=== PATIENT | male | born 2000 | race African-American/Black ===

== ENCOUNTER 2023-03-14 15:05 | Inpatient (IN) | payer OTHER ==
[~2023-03-14 15:05] MED LIST: Iopamidol-370 76% 500 ML MDV (1 ML CHARGE) ONE
[2023-03-14] MEDS ORDERED: fentaNYL 50 mcg/mL 1 mL Vial ONE (15:17)
[2023-03-14] MEDS ORDERED: Fentanyl CADD 100 ML IV SCH (15:30)
[2023-03-14 15:32] LABS: #Eosinphils 0.1 thou/uL (0.0-0.7); #Monocytes 0.5 thou/uL (0.11-0.59); %Basophils 0.3 % (0.0-1.0); %Eosinophils 0.6 % (0.0-10.0); %Lymphocytes 12.2 % (21.0-51.0); %Monocytes 4.7 % (0.0-10.0); %Neutrophils 81.7 % (42.0-75.0); Hematocrit 38.2 % (42.0-52.0); Hemoglobin 13.6 g/dL (14.0-18.0); Mean Corpuscular HGB CONC 35.6 g/dL (32.0-36.0); Mean Corpuscular Hemoglobin 31.3 pg (27.0-31.0); Mean Corpuscular Volume 87.8 fl (78.0-98.0); Mean Platelet Volume 10.7 fL (7.4-10.4); Platelet Count 180 10x3/uL (130-400); RBC Distribution Width 11.8 % (11.5-14.5); Red Blood Cell (RBC) Count 4.35 mill/uL (4.70-6.10)
[2023-03-14] MEDS ORDERED: Boostrix 0.5 ML (Tdap) VIAL (>/=7 yrs of age) ONE (15:35)
[2023-03-14 15:40] LABS: Actual Bicarbonate (HCO3v) 23.7 mEq/L (22-28); Analyzer IN Cardio ER; Base Excess -1.1 mEq/L (-2.0 to +3.0); Calcium, Ionized (venous) 1.09 mmol/L (1.16-1.32); Chloride (VBG) 106 mmol/L (98-106); Hematocrit-VBG 42 % (42.0-52.0); Hemoglobin (Hb) 14.3 g/dL (13.2-17.3); Potassium (VBG) 2.96 mmol/L (3.70-5.30); Sodium 142 mmol/L (133-146)
[2023-03-14 15:42] LABS: INR-International Normal Ratio 1.2; Prothrombin Time 15.7 sec (12.0-14.7)
[2023-03-14 15:57] LABS: Actual Bicarbonate (HCO3a) 19.2 mEq/L (22-28); Analyzer IN Cardio ER; Base Excess (BEa) -3.1 mEq/L (-2.0 to +3.0); CO2 Tension 27.1 mmHg (35.0-45.0); Calcium, Ionized (arterial) 1.13 mmol/L (1.12-1.30); Hematocrit-ABG 39 % (42.0-52.0); Hemoglobin (Hb) 13.4 g/dL (14.0-18.0); O2 Tension (PaO2), arterial 297.3 mmHg (80.0-100.0); pH, Arterial 7.468 (7.35-7.45)
[2023-03-14 16:00] LABS: Puncture Site Left Radial
[2023-03-14 16:01] LABS: ALV-art Gradient 25.325 mmHg (0-20)
[2023-03-14] MEDS ORDERED: Ondansetron PF 4 MG/2 ML Vial IVP PRN (16:09)
[2023-03-14] MEDS ORDERED: Morphine 4 MG/ML VIAL SLOW IVP PRN (16:09)
[2023-03-14] MEDS ORDERED: TETANUS, DIPHTHERIA TOX,ADULT (TDVAX) 0.5 ML VIAL IM ONE (16:09)
[2023-03-14] MEDS ORDERED: Ipratropium/Albuterol 3 ML NEB NEB PRN (16:09)
[2023-03-14] MEDS ORDERED: D5 1/2 NS w/20 mEq KCL 1,000 ML IV SCH (16:15)
[2023-03-14] MEDS ORDERED: Ventilator Sedation Protocol 1 EACH FS SCH (16:15)
[2023-03-14] MEDS ORDERED: Propofol 1,000 MG/100 ML VIAL IV ONE (16:22)
[2023-03-14 16:27] LABS: Bacteria/HPF None Seen HPF (None Seen); Bilirubin Negative (Negative); Blood, Urine 1+ (Negative); CAUTI Indications for Culture Pelvic or flank pain; Clarity Clear (Clear); Glucose, Urine (Dipstick) Normal (Negative); Ketone, Urine Negative (Negative); Leukocyte Negative Leu/uL (Negative); Nitrite Negative (Negative); Protein, Urine (Dipstick) 20 mg/dL (Neg-Trace); RBC/HPF 21-50 HPF (0-3); Squamous Epithelial None Seen HPF (0-3); Urobilinogen Normal mg/dL (Less than 2); WBC/HPF 0-3 HPF (0-3); pH, Urine 6.5 (5.0-9.0)
[2023-03-14 16:30] LABS: ALT (SGPT) 20 U/L (8-55); AST (SGOT) 32 U/L (5-34); Albumin 4.1 g/dL (3.5-5.0); Alcohol Less than 10.0 mg/dL (Less than 10); Alkaline Phosphatase 51 U/L (40-110); Anion Gap 13 mmol/L (10-20); BUN (Urea Nitrogen) 16 mg/dL (8.9-20.6); Bilirubin, Total 1.2 mg/dL (0.2-1.2); Calc. Creatinine Clearance 0 mL/min (70-130); Calcium 8.5 mg/dL (7.8-10.44); Carbon Dioxide 18 mmol/L (22-29); Chloride 109 mmol/L (98-107); Estimated GFR 123; Globulin 2.2 g/dL (2.4-3.5); Glucose 118 mg/dL (70-105); Protein, Total 6.3 g/dL (6.0-8.3); Sodium 137 mmol/L (136-145)
[2023-03-14 16:34] LABS: Specific Gravity, Urine 1.045 (1.002-1.036)
[2023-03-14 16:36] LABS: Urine Culture Reflex No No
[2023-03-14] MEDS ORDERED: DISCONTINUE PREVIOUS NARCOTIC PAIN MEDICATIONS AND BENZODIAZEPINES FS SCH (17:00)
[2023-03-14] MEDS ORDERED: Propofol BOLUS 1,000 MG/100 ML VIAL IV PRN (17:00)
[2023-03-14] MEDS ORDERED: Fentanyl BOLUS 250 ML IVPB PRN (17:00)
[2023-03-14] MEDS ORDERED: Mannitol 12.5 GM/50 ML ONE ×2 (17:14→17:27)
[2023-03-14] MEDS ORDERED: Dextrose 5% in Water 1,000 ML IV PRN (17:23)
[2023-03-14] MEDS ORDERED: Glucagon 1 MG/ML KIT IM PRN (17:23)
[2023-03-14] MEDS ORDERED: Dextrose 50% Abboject 50 ML SYRINGE SLOW IVP PRN (17:23)
[2023-03-14] MEDS ORDERED: manNITOL 20% 0 ML ONE (17:27)
[2023-03-14] MEDS ORDERED: Electrolyte Replacement Protocol 1 EACH FS SCH (17:35)
[2023-03-14] MEDS: Morphine 2 MG/ML VIAL SLOW IVP PRN (18:44)
[2023-03-14] MEDS: Lorazepam 2 MG/ML VIAL SLOW IVP PRN (18:44)
[2023-03-14] MEDS: Potassium Chloride 20 MEQ in Premix 1 BAG IVPB SCH ×2 (18:46→20:56)
[2023-03-14] MEDS: D5 0.9% NS w/ 20 mEq KCl 1,000 ML IV SCH (18:46)
[2023-03-14] MEDS ORDERED: Pantoprazole 40 MG VIAL IVP SCH (21:00)
[2023-03-14] MEDS: Propofol 1,000 MG/100 ML VIAL IV PRN (22:55)
[2023-03-15] MEDS: Acetaminophen 325 MG TAB PO PRN (01:42)
[2023-03-15 02:33] LABS: Anion Gap 12 mmol/L (10-20); BUN (Urea Nitrogen) 14 mg/dL (8.9-20.6); Calc. Creatinine Clearance 112 mL/min (70-130); Calcium 8.1 mg/dL (7.8-10.44); Carbon Dioxide 18 mmol/L (22-29); Chloride 112 mmol/L (98-107); Estimated GFR 119; Glucose 96 mg/dL (70-105); Magnesium 1.7 mg/dL (1.6-2.6); Sodium 138 mmol/L (136-145)
[2023-03-15] MEDS: Lorazepam 2 MG/ML VIAL SLOW IVP PRN ×2 (02:37→04:24)
[2023-03-15] MEDS: D5 0.9% NS w/ 20 mEq KCl 1,000 ML IV SCH ×2 (02:44→12:05)
[2023-03-15] MEDS: CEFAZOLIN 2 GM in Sodium Chloride 0.9% 100 ML IVPB SCH ×3 (03:40→16:32)
[2023-03-15] MEDS ORDERED: Magnesium 2 GM/50 ML(in water) 2 GM in Premix 1 BAG IVPB SCH (04:15)
[2023-03-15] MEDS: Fentanyl CADD 100 ML IV SCH (04:24)
[2023-03-15] MEDS: Propofol 1,000 MG/100 ML VIAL IV PRN ×2 (05:29→16:33)
[2023-03-15] MEDS ORDERED: CEFAZOLIN 2 GM in Sodium Chloride 0.9% 100 ML IVPB SCH (06:00)
[2023-03-15 07:57] LABS: Actual Bicarbonate (HCO3a) 18.8 mEq/L (22-28); Base Excess (BEa) -4.3 mEq/L (-2.0 to +3.0); CO2 Tension 28.7 mmHg (35.0-45.0); Calcium, Ionized (arterial) 1.12 mmol/L (1.12-1.30); Carboxyhemoglobin (COHb) 0.3 gm% (0.0-3.0); Hematocrit-ABG 34 % (42.0-52.0); Hemoglobin (Hb) 11.5 g/dL (14.0-18.0); O2 Tension (PaO2), arterial 169.2 mmHg (80.0-100.0); Potassium - ABG Lab 3.53 mmol/L (3.70-5.30); pH, Arterial 7.435 (7.35-7.45)
[2023-03-15 08:00] LABS: ALV-art Gradient 151.425 mmHg (0-20); Puncture Site LBA
[2023-03-15 08:02] LABS: #Neutrophils 8.2 thou/uL (1.40-6.50); %Basophils 0.1 % (0.0-1.0); %Eosinophils 0.3 % (0.0-10.0); %Lymphocytes 13.3 % (21.0-51.0); %Monocytes 9.2 % (0.0-10.0); %Neutrophils 76.8 % (42.0-75.0); Hematocrit 33.3 % (42.0-52.0); Mean Corpuscular Hemoglobin 30.9 pg (27.0-31.0); Mean Platelet Volume 10.6 fL (7.4-10.4); Platelet Count 160 10x3/uL (130-400); RBC Distribution Width 12.1 % (11.5-14.5); Red Blood Cell (RBC) Count 3.56 mill/uL (4.70-6.10); White Blood Cell (WBC) Count 10.6 10x3/uL (4.8-10.8)
[2023-03-15 08:10] LABS: Mean Corpuscular Volume 93.5 fl (78.0-98.0)
[2023-03-15] MEDS: Pantoprazole 40 MG VIAL IVP SCH (08:40)
[2023-03-15] MEDS: Lactated Ringer's 1,000 ML IV SCH ×3 (12:07→23:06)
[2023-03-15] MEDS: Morphine 2 MG/ML VIAL SLOW IVP PRN ×2 (19:37→23:06)
[2023-03-16] MEDS: CEFAZOLIN 2 GM in Sodium Chloride 0.9% 100 ML IVPB SCH ×3 (00:51→15:57)
[2023-03-16] MEDS: Morphine 2 MG/ML VIAL SLOW IVP PRN ×5 (01:23→18:03)
[2023-03-16 04:41] LABS: Anion Gap 13 mmol/L (10-20); BUN (Urea Nitrogen) 9 mg/dL (8.9-20.6); Calc. Creatinine Clearance 133 mL/min (70-130); Calcium 8.5 mg/dL (7.8-10.44); Carbon Dioxide 20 mmol/L (22-29); Chloride 106 mmol/L (98-107); Estimated GFR 128; Glucose 132 mg/dL (70-105); Magnesium 1.9 mg/dL (1.6-2.6); Potassium 3.7 mmol/L (3.5-5.1); Sodium 135 mmol/L (136-145)
[2023-03-16 04:46] LABS: #Monocytes 1.3 thou/uL (0.11-0.59); %Basophils 0.1 % (0.0-1.0); %Eosinophils 0.1 % (0.0-10.0); %Lymphocytes 5.8 % (21.0-51.0); %Neutrophils 84.5 % (42.0-75.0); Hematocrit 30.1 % (42.0-52.0); Hemoglobin 10.5 g/dL (14.0-18.0); Mean Corpuscular HGB CONC 34.9 g/dL (32.0-36.0); Mean Corpuscular Hemoglobin 31.2 pg (27.0-31.0); Mean Platelet Volume 11.2 fL (7.4-10.4); Platelet Count 143 10x3/uL (130-400); RBC Distribution Width 11.9 % (11.5-14.5); Red Blood Cell (RBC) Count 3.37 mill/uL (4.70-6.10); White Blood Cell (WBC) Count 14.2 10x3/uL (4.8-10.8)
[2023-03-16 04:48] LABS: Mean Corpuscular Volume 89.3 fl (78.0-98.0)
[2023-03-16 07:37] LABS: ALV-art Gradient 64.575 mmHg (0-20); Actual Bicarbonate (HCO3a) 20.5 mEq/L (22-28); Base Excess (BEa) -2.6 mEq/L (-2.0 to +3.0); CO2 Tension 29.9 mmHg (35.0-45.0); Calcium, Ionized (arterial) 1.17 mmol/L (1.12-1.30); Carboxyhemoglobin (COHb) 0.3 gm% (0.0-3.0); Hematocrit-ABG 30 % (42.0-52.0); Hemoglobin (Hb) 10.3 g/dL (14.0-18.0); O2 Tension (PaO2), arterial 147.6 mmHg (80.0-100.0); Potassium - ABG Lab 3.38 mmol/L (3.70-5.30); Puncture Site RRA; pH, Arterial 7.454 (7.35-7.45)
[2023-03-16] MEDS ORDERED: Magnesium 2 GM/50 ML(in water) 2 GM in Premix 1 BAG IVPB SCH (08:00)
[2023-03-16] MEDS: Lactated Ringer's 1,000 ML IV SCH ×2 (08:50→15:57)
[2023-03-16] MEDS: Pantoprazole 40 MG VIAL IVP SCH (08:51)
[2023-03-16] MEDS: Propofol 1,000 MG/100 ML VIAL IV PRN ×2 (15:57→23:09)
[2023-03-16] MEDS: Lorazepam 2 MG/ML VIAL SLOW IVP PRN (18:33)
[2023-03-16] MEDS: Fentanyl CADD 100 ML IV SCH (19:28)
[2023-03-16 20:16] LABS: Anion Gap 10 mmol/L (10-20); BUN (Urea Nitrogen) 9 mg/dL (8.9-20.6); Calc. Creatinine Clearance 128 mL/min (70-130); Calcium 9.2 mg/dL (7.8-10.44); Carbon Dioxide 22 mmol/L (22-29); Chloride 113 mmol/L (98-107); Estimated GFR 127; Glucose 110 mg/dL (70-105); Potassium 4.2 mmol/L (3.5-5.1); Sodium 141 mmol/L (136-145)
[2023-03-16] MEDS ORDERED: Lactated Ringer's 500 ML IV SCH (23:30)
[2023-03-17] MEDS: CEFAZOLIN 2 GM in Sodium Chloride 0.9% 100 ML IVPB SCH ×3 (01:04→17:27)
[2023-03-17] MEDS: Acetaminophen 325 MG TAB PO PRN ×2 (02:26→20:01)
[2023-03-17] MEDS ORDERED: Lactated Ringer's 500 ML IV SCH (03:30)
[2023-03-17] MEDS ORDERED: Lactated Ringer's 1,000 ML IV SCH (03:30)
[2023-03-17] MEDS ORDERED: NOREPINEPHRINE 8 MG/250 ML-D5W 250 ML IVPB SCH (05:15)
[2023-03-17] MEDS: Lactated Ringer's 1,000 ML IV SCH (05:53)
[2023-03-17 05:58] LABS: #Monocytes 1.1 thou/uL (0.11-0.59); #Neutrophils 7.6 thou/uL (1.40-6.50); %Basophils 0.2 % (0.0-1.0); %Eosinophils 0.2 % (0.0-10.0); %Lymphocytes 11.4 % (21.0-51.0); %Monocytes 10.7 % (0.0-10.0); Hematocrit 28.5 % (42.0-52.0); Hemoglobin 9.9 g/dL (14.0-18.0); Mean Corpuscular HGB CONC 34.7 g/dL (32.0-36.0); Mean Corpuscular Hemoglobin 31.1 pg (27.0-31.0); Mean Corpuscular Volume 89.6 fl (78.0-98.0); Platelet Count 139 10x3/uL (130-400); RBC Distribution Width 12.4 % (11.5-14.5); Red Blood Cell (RBC) Count 3.18 mill/uL (4.70-6.10); White Blood Cell (WBC) Count 9.8 10x3/uL (4.8-10.8)
[2023-03-17 06:48] LABS: Anion Gap 11 mmol/L (10-20); BUN (Urea Nitrogen) 12 mg/dL (8.9-20.6); Calc. Creatinine Clearance 118 mL/min (70-130); Calcium 8.6 mg/dL (7.8-10.44); Carbon Dioxide 21 mmol/L (22-29); Chloride 115 mmol/L (98-107); Estimated GFR 124; Glucose 103 mg/dL (70-105); Potassium 4.3 mmol/L (3.5-5.1); Sodium 143 mmol/L (136-145)
[2023-03-17 07:19] LABS: Actual Bicarbonate (HCO3a) 23.3 mEq/L (22-28); Base Excess (BEa) -0.6 mEq/L (-2.0 to +3.0); CO2 Tension 35.6 mmHg (35.0-45.0); Calcium, Ionized (arterial) 1.17 mmol/L (1.12-1.30); Carboxyhemoglobin (COHb) 0.3 gm% (0.0-3.0); Hematocrit-ABG 30 % (42.0-52.0); Hemoglobin (Hb) 10.2 g/dL (14.0-18.0); pH, Arterial 7.434 (7.35-7.45)
[2023-03-17 07:20] LABS: Puncture Site RRA
[2023-03-17] MEDS: Pantoprazole 40 MG VIAL IVP SCH (07:59)
[2023-03-17] MEDS ORDERED: FLU VACC QS2023-24(6MOS UP)/PF 60 MCG/0.5 ML SYRINGE IM ONE (09:00)
[2023-03-17] MEDS ORDERED: Dextrose 5% in Water 1,000 ML IV SCH (10:00)
[2023-03-17] MEDS: Propofol 1,000 MG/100 ML VIAL IV PRN (10:49)
[2023-03-17 17:46] LABS: Sodium 139 mmol/L (136-145)
[2023-03-17 18:21] LABS: Anion Gap 11 mmol/L (10-20); BUN (Urea Nitrogen) 11 mg/dL (8.9-20.6); Calc. Creatinine Clearance 143 mL/min (70-130); Calcium 8.6 mg/dL (7.8-10.44); Carbon Dioxide 23 mmol/L (22-29); Chloride 109 mmol/L (98-107); Estimated GFR 131; Glucose 145 mg/dL (70-105); Potassium 3.4 mmol/L (3.5-5.1); Sodium 140 mmol/L (136-145)
[2023-03-17] MEDS ORDERED: hydrALAZINE 20 MG/ML VIAL SLOW IVP PRN (19:51)
[2023-03-17] MEDS: Potassium Chloride 20 MEQ in Premix 1 BAG IVPB SCH ×2 (21:00→22:22)
[2023-03-18] MEDS: CEFAZOLIN 2 GM in Sodium Chloride 0.9% 100 ML IVPB SCH ×2 (01:14→07:55)
[2023-03-18] MEDS: Lorazepam 2 MG/ML VIAL SLOW IVP PRN ×3 (01:52→17:25)
[2023-03-18] MEDS ORDERED: levETIRAcetam 500 MG (5 mL) VIAL SLOW IVP SCH ×4 (02:15→11:45)
[2023-03-18 05:10] LABS: #Monocytes 0.8 thou/uL (0.11-0.59); #Neutrophils 10.3 thou/uL (1.40-6.50); %Basophils 0.1 % (0.0-1.0); %Eosinophils 0.2 % (0.0-10.0); %Lymphocytes 7.1 % (21.0-51.0); %Monocytes 6.8 % (0.0-10.0); %Neutrophils 85.4 % (42.0-75.0); Hematocrit 29.4 % (42.0-52.0); Hemoglobin 10.3 g/dL (14.0-18.0); Mean Corpuscular Hemoglobin 31.2 pg (27.0-31.0); Mean Corpuscular Volume 89.1 fl (78.0-98.0); Mean Platelet Volume 10.9 fL (7.4-10.4); Platelet Count 217 10x3/uL (130-400); RBC Distribution Width 12.1 % (11.5-14.5); White Blood Cell (WBC) Count 12.1 10x3/uL (4.8-10.8)
[2023-03-18 05:27] LABS: Potassium 3.5 mmol/L (3.5-5.1)
[2023-03-18 05:35] LABS: Anion Gap 12 mmol/L (10-20); BUN (Urea Nitrogen) 11 mg/dL (8.9-20.6); Calc. Creatinine Clearance 0 mL/min (70-130); Calcium 8.8 mg/dL (7.8-10.44); Carbon Dioxide 24 mmol/L (22-29); Chloride 110 mmol/L (98-107); Estimated GFR 128; Glucose 138 mg/dL (70-105); Potassium 3.5 mmol/L (3.5-5.1); Sodium 142 mmol/L (136-145)
[2023-03-18 06:52] LABS: Actual Bicarbonate (HCO3a) 23.3 mEq/L (22-28); Base Excess (BEa) 0.1 mEq/L (-2.0 to +3.0); CO2 Tension 32.8 mmHg (35.0-45.0); Calcium, Ionized (arterial) 1.19 mmol/L (1.12-1.30); Carboxyhemoglobin (COHb) 0.1 gm% (0.0-3.0); Hematocrit-ABG 34 % (42.0-52.0); Hemoglobin (Hb) 11.6 g/dL (14.0-18.0); Potassium - ABG Lab 3.64 mmol/L (3.70-5.30); pH, Arterial 7.469 (7.35-7.45)
[2023-03-18] MEDS: Propofol 1,000 MG/100 ML VIAL IV PRN ×2 (07:25→17:55)
[2023-03-18] MEDS: Fentanyl CADD 100 ML IV SCH (07:25)
[2023-03-18] MEDS: Potassium Chloride 20 MEQ in Premix 1 BAG IVPB SCH ×2 (07:25→08:25)
[2023-03-18 07:39] LABS: O2 Tension (PaO2), arterial 49.1 mmHg (80.0-100.0)
[2023-03-18 07:40] LABS: Puncture Site RRA
[2023-03-18] MEDS: Acetaminophen 325 MG TAB PO PRN ×2 (07:45→14:00)
[2023-03-18] MEDS: Pantoprazole 40 MG VIAL IVP SCH (07:45)
[2023-03-18] MEDS: Senokot 8.6 MG TAB PO PRN (07:55)
[2023-03-18] MEDS: Polyethylene Glycol 3350 17 GM Packet PO PRN (07:55)
[2023-03-18] MEDS ORDERED: Sodium Chloride 0.45% 1,000 ML IV SCH (09:30)
[2023-03-18] MEDS ORDERED: Lorazepam 2 MG/ML VIAL SLOW IVP SCH (11:45)
[2023-03-18 14:22] LABS: Potassium 3.7 mmol/L (3.5-5.1)
[2023-03-18] MEDS ORDERED: Ketorolac Tromethamine 30 MG (1 mL) VIAL IVP SCH (16:15)
[2023-03-18] MEDS ORDERED: Vecuronium 10 MG VIAL ONE (17:30)
[2023-03-18] MEDS ORDERED: Vecuronium 10 MG VIAL IVP SCH (17:30)
[2023-03-18] MEDS ORDERED: SODIUM CHLORIDE 0.9% IVPB SCH (17:45)
[2023-03-18] MEDS ORDERED: LACOSAMIDE IVPB SCH (17:45)
[2023-03-18 18:27] LABS: Sodium 144 mmol/L (136-145)
[2023-03-18] MEDS: levETIRAcetam 500 MG (5 mL) VIAL SLOW IVP SCH (20:10)
[2023-03-18] MEDS: Lacosamide 200 MG in Sodium Chloride 0.9% 50 ML IVPB SCH (22:48)
[2023-03-19] MEDS: Acetaminophen 650 MG Suppository PR PRN (00:15)
[2023-03-19] MEDS: Propofol 1,000 MG/100 ML VIAL IV PRN ×4 (00:15→23:15)
[2023-03-19 00:50] LABS: Sodium 147 mmol/L (136-145)
[2023-03-19] MEDS ORDERED: Lactated Ringer's 500 ML IV SCH (02:30)
[2023-03-19 04:30] LABS: Hematocrit 28.5 % (42.0-52.0); Hemoglobin 9.8 g/dL (14.0-18.0); Manual Diff?? YES; Mean Corpuscular HGB CONC 34.4 g/dL (32.0-36.0); Mean Corpuscular Hemoglobin 30.9 pg (27.0-31.0); Mean Corpuscular Volume 89.9 fl (78.0-98.0); Mean Platelet Volume 10.5 fL (7.4-10.4); Platelet Count 252 10x3/uL (130-400); RBC Distribution Width 12.5 % (11.5-14.5); Red Blood Cell (RBC) Count 3.17 mill/uL (4.70-6.10); White Blood Cell (WBC) Count 10.9 10x3/uL (4.8-10.8)
[2023-03-19 04:55] LABS: Anion Gap 11 mmol/L (10-20); BUN (Urea Nitrogen) 21 mg/dL (8.9-20.6); Calc. Creatinine Clearance 111 mL/min (70-130); Calcium 8.8 mg/dL (7.8-10.44); Carbon Dioxide 24 mmol/L (22-29); Chloride 113 mmol/L (98-107); Estimated GFR 119; Glucose 128 mg/dL (70-105); Potassium 3.9 mmol/L (3.5-5.1); Sodium 144 mmol/L (136-145)
[2023-03-19 05:36] LABS: Delete Auto Diff?? YES
[2023-03-19] MEDS ORDERED: Lacosamide 200 MG in Sodium Chloride 0.9% 50 ML IVPB SCH (06:00)
[2023-03-19 06:46] LABS: Anisocytosis SLIGHT = 6-15 cells HPF (0-5); Band 43 % (5-11); CellaVision Operator ID LAB.JMM; Large Platelets 4.9 % (0-5); Lymphocytes 7 % (21-51); Macrocytosis SLIGHT = 6-15 cells HPF (0-5); Metamyelocyte 3 % (0-0); Monocytes 6 % (0-10); Myelocyte 1 % (0-0); Neutrophil 41 % (42-75); Platelet Adequacy Comment Platelets Normal; Platelet Clumps 1.9 % (0-5); Polychromasia SLIGHT = 2-3 cells HPF (0-2); Smudge Cells 13.6 %; Total Cell Count 103
[2023-03-19 06:47] LABS: Sodium 145 mmol/L (136-145)
[2023-03-19 07:26] LABS: Actual Bicarbonate (HCO3a) 22.5 mEq/L (22-28); Base Excess (BEa) -0.5 mEq/L (-2.0 to +3.0); Calcium, Ionized (arterial) 1.15 mmol/L (1.12-1.30); Carboxyhemoglobin (COHb) 0.3 gm% (0.0-3.0); Hematocrit-ABG 30 % (42.0-52.0); Hemoglobin (Hb) 10.2 g/dL (14.0-18.0); O2 Tension (PaO2), arterial 64.2 mmHg (80.0-100.0); pH, Arterial 7.478 (7.35-7.45)
[2023-03-19 07:36] LABS: Puncture Site RBA
[2023-03-19] MEDS: Acetaminophen 325 MG TAB PO PRN ×4 (09:10→22:02)
[2023-03-19] MEDS: levETIRAcetam 500 MG (5 mL) VIAL SLOW IVP SCH ×2 (09:10→20:43)
[2023-03-19] MEDS: Lorazepam 2 MG/ML VIAL SLOW IVP PRN ×4 (09:25→21:30)
[2023-03-19] MEDS: Fentanyl CADD 100 ML IV SCH (09:25)
[2023-03-19] MEDS: Lacosamide 200 MG in Sodium Chloride 0.9% 50 ML IVPB SCH ×2 (09:55→20:43)
[2023-03-19] MEDS: Lansoprazole 15 MG/5 ML (BATCHED)UDCUP PER TUBE SCH (11:30)
[2023-03-19 12:20] LABS: Sodium 147 mmol/L (136-145)
[2023-03-19] MEDS: Polyethylene Glycol 3350 17 GM Packet PO PRN (13:40)
[2023-03-19] MEDS: Senokot 8.6 MG TAB PO PRN (13:40)
[2023-03-19] MEDS ORDERED: Sodium Chloride 0.9% 1,000 ML IV SCH (16:00)
[2023-03-19 18:46] LABS: Sodium 144 mmol/L (136-145)
[2023-03-19 20:55] LABS: BF Color White; Body Fluid Source Bronchial Washings; Clarity Cloudy/Turbid (Clear); Tube # EDTA
[2023-03-19] MEDS ORDERED: Famotidine 20 MG TAB PER TUBE SCH (21:00)
[2023-03-19] MEDS ORDERED: Vecuronium 10 MG VIAL IVP SCH (22:00)
[2023-03-19 22:01] LABS: BF Segmented Neutrophils 97 %; Cell Count Non Hematic 3 %
[2023-03-20 00:41] LABS: Sodium 144 mmol/L (136-145)
[2023-03-20] MEDS: Fentanyl CADD 100 ML IV SCH ×2 (03:20→19:25)
[2023-03-20 04:33] LABS: Hematocrit 27.5 % (42.0-52.0); Hemoglobin 9.2 g/dL (14.0-18.0); Manual Diff?? YES; Mean Corpuscular HGB CONC 33.5 g/dL (32.0-36.0); Mean Corpuscular Hemoglobin 30.6 pg (27.0-31.0); Mean Corpuscular Volume 91.4 fl (78.0-98.0); Mean Platelet Volume 10.6 fL (7.4-10.4); Platelet Count 254 10x3/uL (130-400); RBC Distribution Width 12.9 % (11.5-14.5); Red Blood Cell (RBC) Count 3.01 mill/uL (4.70-6.10); White Blood Cell (WBC) Count 14.8 10x3/uL (4.8-10.8)
[2023-03-20 04:48] LABS: Delete Auto Diff?? YES
[2023-03-20 05:05] LABS: Anion Gap 12 mmol/L (10-20); BUN (Urea Nitrogen) 18 mg/dL (8.9-20.6); Calc. Creatinine Clearance 126 mL/min (70-130); Calcium 9.1 mg/dL (7.8-10.44); Carbon Dioxide 27 mmol/L (22-29); Chloride 110 mmol/L (98-107); Estimated GFR 126; Glucose 122 mg/dL (70-105); Potassium 3.7 mmol/L (3.5-5.1); Sodium 145 mmol/L (136-145)
[2023-03-20 05:26] LABS: Band 14 % (5-11); CellaVision Operator ID lab.abc; Eosinophils 1 % (0-10); Lymphocytes 7 % (21-51); Myelocyte 1 % (0-0); Neutrophil 77 % (42-75); Platelet Adequacy Comment Platelets Normal; Polychromasia SLIGHT = 2-3 cells HPF (0-2); RBC Morphology Within Normal Limits; Total Cell Count 100
[2023-03-20] MEDS: Propofol 1,000 MG/100 ML VIAL IV PRN ×3 (07:10→15:05)
[2023-03-20] MEDS: Lorazepam 2 MG/ML VIAL SLOW IVP PRN ×7 (07:35→22:45)
[2023-03-20 08:34] LABS: Actual Bicarbonate (HCO3a) 25.2 mEq/L (22-28); Base Excess (BEa) 0.5 mEq/L (-2.0 to +3.0); CO2 Tension 40.8 mmHg (35.0-45.0); Calcium, Ionized (arterial) 1.19 mmol/L (1.12-1.30); Carboxyhemoglobin (COHb) 0.3 gm% (0.0-3.0); Hematocrit-ABG 30 % (42.0-52.0); Hemoglobin (Hb) 10.2 g/dL (14.0-18.0); O2 Tension (PaO2), arterial 91.5 mmHg (80.0-100.0); Potassium - ABG Lab 4.12 mmol/L (3.70-5.30); pH, Arterial 7.409 (7.35-7.45)
[2023-03-20 08:38] LABS: Puncture Site RBA
[2023-03-20] MEDS: Lacosamide 200 MG in Sodium Chloride 0.9% 50 ML IVPB SCH ×2 (10:05→22:13)
[2023-03-20] MEDS: Senokot 8.6 MG TAB PO PRN (10:10)
[2023-03-20] MEDS: Polyethylene Glycol 3350 17 GM Packet PO PRN (10:10)
[2023-03-20] MEDS: Lansoprazole 15 MG/5 ML (BATCHED)UDCUP PER TUBE SCH (10:10)
[2023-03-20] MEDS: Acetaminophen 325 MG TAB PO PRN ×3 (10:10→16:50)
[2023-03-20] MEDS: levETIRAcetam 500 MG (5 mL) VIAL SLOW IVP SCH ×2 (10:10→21:16)
[2023-03-20 18:48] LABS: Sodium 144 mmol/L (136-145)
[2023-03-20] MEDS ORDERED: Vecuronium 10 MG VIAL ONE (19:25)
[2023-03-20] MEDS ORDERED: Sterile Water 10 ML ONE (19:26)
[2023-03-20] MEDS ORDERED: Vecuronium 10 MG VIAL IVP SCH ×2 (20:15→22:00)
[2023-03-20] MEDS ORDERED: Dexmedetomidine In 0.9 % NaCl 100 ML IVPB SCH (23:15)
[2023-03-20] MEDS: Morphine 2 MG/ML VIAL SLOW IVP PRN (23:42)
[2023-03-21 00:25] LABS: Sodium 145 mmol/L (136-145)
[2023-03-21] MEDS: Propofol 1,000 MG/100 ML VIAL IV PRN ×2 (01:34→05:39)
[2023-03-21] MEDS: Lorazepam 2 MG/ML VIAL SLOW IVP PRN ×5 (02:05→18:35)
[2023-03-21] MEDS: Morphine 2 MG/ML VIAL SLOW IVP PRN ×3 (02:08→20:26)
[2023-03-21] MEDS: Acetaminophen 325 MG TAB PO PRN ×2 (02:34→09:08)
[2023-03-21] MEDS: Fentanyl CADD 100 ML IV SCH ×2 (05:21→19:14)
[2023-03-21 05:35] LABS: Hematocrit 31.1 % (42.0-52.0); Hemoglobin 10.3 g/dL (14.0-18.0); Manual Diff?? YES; Mean Corpuscular HGB CONC 33.1 g/dL (32.0-36.0); Mean Corpuscular Hemoglobin 30.3 pg (27.0-31.0); Mean Corpuscular Volume 91.5 fl (78.0-98.0); Mean Platelet Volume 10.5 fL (7.4-10.4); Platelet Count 317 10x3/uL (130-400); RBC Distribution Width 12.6 % (11.5-14.5)
[2023-03-21 06:03] LABS: Delete Auto Diff?? YES
[2023-03-21 06:07] LABS: Anion Gap 14 mmol/L (10-20); BUN (Urea Nitrogen) 18 mg/dL (8.9-20.6); Calc. Creatinine Clearance 135 mL/min (70-130); Carbon Dioxide 23 mmol/L (22-29); Chloride 112 mmol/L (98-107); Estimated GFR 128; Glucose 137 mg/dL (70-105); Potassium 3.4 mmol/L (3.5-5.1); Sodium 146 mmol/L (136-145)
[2023-03-21 06:40] LABS: Actual Bicarbonate (HCO3a) 25.8 mEq/L (22-28); Calcium, Ionized (arterial) 1.15 mmol/L (1.12-1.30); Carboxyhemoglobin (COHb) 0.3 gm% (0.0-3.0); Hematocrit-ABG 30 % (42.0-52.0); Hemoglobin (Hb) 10.3 g/dL (14.0-18.0); Potassium - ABG Lab 3.28 mmol/L (3.70-5.30); pH, Arterial 7.406 (7.35-7.45)
[2023-03-21 06:48] LABS: Puncture Site RRA
[2023-03-21 07:06] LABS: Anisocytosis SLIGHT = 6-15 cells HPF (0-5); Band 45 % (5-11); CellaVision Operator ID LAB.JMM; Lymphocytes 6 % (21-51); Macrocytosis SLIGHT = 6-15 cells HPF (0-5); Metamyelocyte 4 % (0-0); Monocytes 2 % (0-10); Myelocyte 3 % (0-0); Neutrophil 40 % (42-75); Platelet Adequacy Comment Platelets Normal; Polychromasia SLIGHT = 2-3 cells HPF (0-2); Total Cell Count 100
[2023-03-21] MEDS: Lansoprazole 15 MG/5 ML (BATCHED)UDCUP PER TUBE SCH (08:51)
[2023-03-21] MEDS: Potassium Chloride 20 MEQ in Premix 1 BAG IVPB SCH ×2 (08:53→10:27)
[2023-03-21] MEDS: levETIRAcetam 500 MG (5 mL) VIAL SLOW IVP SCH ×2 (08:54→20:06)
[2023-03-21] MEDS: Lacosamide 200 MG in Sodium Chloride 0.9% 50 ML IVPB SCH ×2 (08:57→20:24)
[2023-03-21 12:08] LABS: Sodium 145 mmol/L (136-145)
[2023-03-21] MEDS ORDERED: Lactated Ringer's 500 ML IV SCH (12:15)
[2023-03-21] MEDS ORDERED: Morphine 10 MG/ML VIAL SLOW IVP SCH (19:00)
[2023-03-21 19:07] LABS: Anion Gap 14 mmol/L (10-20); BUN (Urea Nitrogen) 21 mg/dL (8.9-20.6); Calc. Creatinine Clearance 133 mL/min (70-130); Calcium 8.7 mg/dL (7.8-10.44); Carbon Dioxide 23 mmol/L (22-29); Chloride 112 mmol/L (98-107); Estimated GFR 128; Glucose 139 mg/dL (70-105); Potassium 4.2 mmol/L (3.5-5.1); Sodium 145 mmol/L (136-145)
[2023-03-21] MEDS: Dexmedetomidine 400 MCG, Admixture Fee 1 EACH in Sodium Chloride 0.9% 96 ML IVPB SCH (23:51)
[2023-03-22] MEDS ORDERED: Sodium Chloride 0.9% 500 ML IV SCH (01:30)
[2023-03-22 02:16] LABS: Sodium 147 mmol/L (136-145)
[2023-03-22] MEDS: Acetaminophen 650 MG Suppository PR PRN ×2 (03:26→09:42)
[2023-03-22 04:46] LABS: Hematocrit 23.5 % (42.0-52.0); Hemoglobin 7.8 g/dL (14.0-18.0); Manual Diff?? YES; Mean Corpuscular HGB CONC 33.2 g/dL (32.0-36.0); Mean Corpuscular Hemoglobin 30.4 pg (27.0-31.0); Mean Corpuscular Volume 91.4 fl (78.0-98.0); Mean Platelet Volume 10.8 fL (7.4-10.4); Platelet Count 294 10x3/uL (130-400); RBC Distribution Width 12.7 % (11.5-14.5); Red Blood Cell (RBC) Count 2.57 mill/uL (4.70-6.10); White Blood Cell (WBC) Count 15.7 10x3/uL (4.8-10.8)
[2023-03-22 04:51] LABS: Delete Auto Diff?? YES
[2023-03-22 05:13] LABS: Anion Gap 14 mmol/L (10-20); BUN (Urea Nitrogen) 26 mg/dL (8.9-20.6); Calc. Creatinine Clearance 114 mL/min (70-130); Calcium 8.6 mg/dL (7.8-10.44); Carbon Dioxide 25 mmol/L (22-29); Chloride 112 mmol/L (98-107); Estimated GFR 121; Glucose 113 mg/dL (70-105); Potassium 3.7 mmol/L (3.5-5.1); Sodium 147 mmol/L (136-145)
[2023-03-22 05:14] LABS: Band 13 % (5-11); CellaVision Operator ID lab.abc; Lymphocytes 1 % (21-51); Monocytes 4 % (0-10); Myelocyte 2 % (0-0); Neutrophil 80 % (42-75); Platelet Adequacy Comment Platelets Normal; RBC Morphology Within Normal Limits; Total Cell Count 100
[2023-03-22 07:33] LABS: Actual Bicarbonate (HCO3a) 23.9 mEq/L (22-28); Base Excess (BEa) 0.3 mEq/L (-2.0 to +3.0); CO2 Tension 34.1 mmHg (35.0-45.0); Calcium, Ionized (arterial) 1.16 mmol/L (1.12-1.30); Carboxyhemoglobin (COHb) 0.3 gm% (0.0-3.0); Hematocrit-ABG 26 % (42.0-52.0); Hemoglobin (Hb) 8.9 g/dL (14.0-18.0); O2 Tension (PaO2), arterial 145.3 mmHg (80.0-100.0); Potassium - ABG Lab 3.59 mmol/L (3.70-5.30); pH, Arterial 7.463 (7.35-7.45)
[2023-03-22 07:34] LABS: Puncture Site RBA
[2023-03-22 07:37] LABS: ALV-art Gradient 382.475 mmHg (0-20)
[2023-03-22 07:53] LABS: Hematocrit 23.5 % (42.0-52.0); Hemoglobin 7.9 g/dL (14.0-18.0)
[2023-03-22] MEDS: levETIRAcetam 500 MG (5 mL) VIAL SLOW IVP SCH ×2 (09:00→20:52)
[2023-03-22] MEDS: Dexmedetomidine 400 MCG, Admixture Fee 1 EACH in Sodium Chloride 0.9% 96 ML IVPB SCH ×2 (09:13→20:29)
[2023-03-22] MEDS: Lacosamide 200 MG in Sodium Chloride 0.9% 50 ML IVPB SCH ×2 (09:14→20:56)
[2023-03-22] MEDS: Lansoprazole 15 MG/5 ML (BATCHED)UDCUP PER TUBE SCH (09:22)
[2023-03-22] MEDS ORDERED: Midazolam HCl 2 mg/2 ml Vial ONE ×2 (09:53→12:01)
[2023-03-22] MEDS ORDERED: Rocuronium Bromide 10 MG/ML (10ML VIAL) ONE ×4 (09:54→12:14)
[2023-03-22] MEDS ORDERED: EPINEPHrine 1 MG/ML VIAL ONE (09:56)
[2023-03-22] MEDS ORDERED: Lidocaine 1% (PF) 30 ML VIAL ONE (09:56)
[2023-03-22] MEDS ORDERED: CEFAZOLIN 1 GM VIAL ONE (10:34)
[2023-03-22] MEDS ORDERED: Vecuronium 10 MG VIAL IVP SCH (13:45)
[2023-03-22] MEDS: Propofol 1,000 MG/100 ML VIAL IV PRN (13:49)
[2023-03-22] MEDS ORDERED: Lactated Ringer's 500 ML IV SCH (15:15)
[2023-03-22] MEDS ORDERED: Vecuronium 10 MG VIAL IV SCH ×2 (15:45→19:00)
[2023-03-22 17:40] LABS: Hematocrit 21.6 % (42.0-52.0); Hemoglobin 7.2 g/dL (14.0-18.0)
[2023-03-22] MEDS: Lorazepam 2 MG/ML VIAL SLOW IVP PRN ×2 (17:59→21:07)
[2023-03-22] MEDS ORDERED: Vecuronium Bromide 20 MG VIAL IV PRN (18:52)
[2023-03-22] MEDS: Acetaminophen 325 MG TAB PO PRN (19:42)
[2023-03-22] MEDS: Cefepime 1 GM in Sodium Chloride 0.9% 100 ML IVPB SCH (21:18)
[2023-03-22] MEDS: Fentanyl CADD 100 ML IV SCH (21:37)
[2023-03-22] MEDS: Vecuronium 10 MG VIAL IV PRN ×2 (22:06→23:47)
[2023-03-23] MEDS: Vecuronium 10 MG VIAL IV PRN ×6 (04:26→16:35)
[2023-03-23] MEDS: Propofol 1,000 MG/100 ML VIAL IV PRN ×2 (06:02→16:19)
[2023-03-23] MEDS: Dexmedetomidine 400 MCG, Admixture Fee 1 EACH in Sodium Chloride 0.9% 96 ML IVPB SCH ×2 (06:37→16:40)
[2023-03-23] MEDS: Ferrous Sulfate 325 MG TAB PO SCH ×2 (07:26→16:20)
[2023-03-23 07:59] LABS: Actual Bicarbonate (HCO3a) 24.3 mEq/L (22-28); Base Excess (BEa) 0.5 mEq/L (-2.0 to +3.0); CO2 Tension 35.9 mmHg (35.0-45.0); Calcium, Ionized (arterial) 1.11 mmol/L (1.12-1.30); Carboxyhemoglobin (COHb) 0.1 gm% (0.0-3.0); Hematocrit-ABG 27 % (42.0-52.0); Hemoglobin (Hb) 9.2 g/dL (14.0-18.0); O2 Tension (PaO2), arterial 81.8 mmHg (80.0-100.0); Potassium - ABG Lab 4.03 mmol/L (3.70-5.30); pH, Arterial 7.449 (7.35-7.45)
[2023-03-23 08:01] LABS: Puncture Site LRA
[2023-03-23 08:03] LABS: ALV-art Gradient 301.125 mmHg (0-20)
[2023-03-23 08:18] LABS: Manual Diff?? YES; Mean Corpuscular Hemoglobin 30.3 pg (27.0-31.0); Mean Corpuscular Volume 94.5 fl (78.0-98.0); Mean Platelet Volume 10.4 fL (7.4-10.4); Platelet Count 363 10x3/uL (130-400); RBC Distribution Width 13.5 % (11.5-14.5); Red Blood Cell (RBC) Count 3.47 mill/uL (4.70-6.10); White Blood Cell (WBC) Count 17.6 10x3/uL (4.8-10.8)
[2023-03-23 08:21] LABS: Delete Auto Diff?? YES; Hematocrit 32.8 % (42.0-52.0); Hemoglobin 10.5 g/dL (14.0-18.0)
[2023-03-23 08:32] LABS: Anion Gap 18 mmol/L (10-20); BUN (Urea Nitrogen) 21 mg/dL (8.9-20.6); Calc. Creatinine Clearance 116 mL/min (70-130); Carbon Dioxide 22 mmol/L (22-29); Chloride 114 mmol/L (98-107); Estimated GFR 124; Glucose 108 mg/dL (70-105); Potassium 4.5 mmol/L (3.5-5.1); Sodium 149 mmol/L (136-145)
[2023-03-23 08:54] LABS: Band 4 % (5-11); Lymphocytes 11 % (21-51); Monocytes 9 % (0-10); Neutrophil 75 % (42-75); Other Cell Types 1
[2023-03-23 08:55] LABS: Platelet Adequacy Comment Appears Adequate; RBC Morph Comment Within Normal Limits
[2023-03-23] MEDS: Lacosamide 200 MG in Sodium Chloride 0.9% 50 ML IVPB SCH ×2 (09:16→21:30)
[2023-03-23] MEDS: levETIRAcetam 500 MG (5 mL) VIAL SLOW IVP SCH ×2 (09:17→21:28)
[2023-03-23] MEDS: Cefepime 1 GM in Sodium Chloride 0.9% 100 ML IVPB SCH (09:17)
[2023-03-23] MEDS: Ascorbic Acid 500 mg Chewable Tablet PO SCH ×2 (09:17→21:29)
[2023-03-23] MEDS: Lansoprazole 15 MG/5 ML (BATCHED)UDCUP PER TUBE SCH (09:17)
[2023-03-23] MEDS: Saccharomyces boulardii 250 MG CAP PO SCH (09:17)
[2023-03-23 10:16] LABS: Actual Bicarbonate (HCO3a) 22.7 mEq/L (22-28); Base Excess (BEa) 0.9 mEq/L (-2.0 to +3.0); CO2 Tension 26.8 mmHg (35.0-45.0); Carboxyhemoglobin (COHb) 0.3 gm% (0.0-3.0); Hematocrit-ABG 29 % (42.0-52.0); Hemoglobin (Hb) 9.8 g/dL (14.0-18.0); O2 Tension (PaO2), arterial 114.2 mmHg (80.0-100.0); Potassium - ABG Lab 3.44 mmol/L (3.70-5.30); pH, Arterial 7.545 (7.35-7.45)
[2023-03-23 10:20] LABS: Puncture Site LBA
[2023-03-23] MEDS: Acetaminophen 325 MG TAB PO PRN ×2 (14:07→21:28)
[2023-03-23] MEDS: Fentanyl CADD 100 ML IV SCH (17:34)
[2023-03-23] MEDS: Cefepime 2 GM in Sodium Chloride 0.9% 100 ML IVPB SCH (21:29)
[2023-03-23] MEDS: Lorazepam 2 MG/ML VIAL SLOW IVP PRN (21:30)
[2023-03-23] MEDS ORDERED: Lactated Ringer's 500 ML IV SCH (23:15)
[2023-03-23] MEDS: Morphine 2 MG/ML VIAL SLOW IVP PRN (23:47)
[2023-03-24] MEDS: Morphine 2 MG/ML VIAL SLOW IVP PRN (01:59)
[2023-03-24] MEDS: Lorazepam 2 MG/ML VIAL SLOW IVP PRN ×3 (02:00→23:04)
[2023-03-24] MEDS: Propofol 1,000 MG/100 ML VIAL IV PRN ×2 (04:15→21:23)
[2023-03-24] MEDS: Dexmedetomidine 400 MCG, Admixture Fee 1 EACH in Sodium Chloride 0.9% 96 ML IVPB SCH (04:15)
[2023-03-24 05:26] LABS: Hematocrit 24.9 % (42.0-52.0); Hemoglobin 8.2 g/dL (14.0-18.0); Manual Diff?? YES; Mean Corpuscular HGB CONC 32.9 g/dL (32.0-36.0); Mean Corpuscular Hemoglobin 30.5 pg (27.0-31.0); Mean Corpuscular Volume 92.6 fl (78.0-98.0); Mean Platelet Volume 10.3 fL (7.4-10.4); Platelet Count 296 10x3/uL (130-400); RBC Distribution Width 13.5 % (11.5-14.5); Red Blood Cell (RBC) Count 2.69 mill/uL (4.70-6.10); White Blood Cell (WBC) Count 15.4 10x3/uL (4.8-10.8)
[2023-03-24 05:58] LABS: Delete Auto Diff?? YES
[2023-03-24] MEDS: Acetaminophen 650 MG/20.3 ML UDCUP PO SCH ×5 (06:32→21:23)
[2023-03-24 06:42] LABS: Band 14 % (5-11); CellaVision Operator ID LAB.GE; Eosinophils 1 % (0-10); Lymphocytes 9 % (21-51); Metamyelocyte 2 % (0-0); Monocytes 4 % (0-10); Myelocyte 1 % (0-0); Neutrophil 69 % (42-75); Nucleated RBC (Manual Ct) 2 % (0); Platelet Adequacy Comment Platelets Normal; Polychromasia SLIGHT = 2-3 cells HPF (0-2); Total Cell Count 100
[2023-03-24 07:17] LABS: Base Excess (BEa) 0.1 mEq/L (-2.0 to +3.0); Calcium, Ionized (arterial) 1.15 mmol/L (1.12-1.30); Carboxyhemoglobin (COHb) 0.3 gm% (0.0-3.0); Hematocrit-ABG 26 % (42.0-52.0); Hemoglobin (Hb) 8.8 g/dL (14.0-18.0); O2 Tension (PaO2), arterial 90.7 mmHg (80.0-100.0); Potassium - ABG Lab 3.54 mmol/L (3.70-5.30); pH, Arterial 7.442 (7.35-7.45)
[2023-03-24 07:53] LABS: Puncture Site LBA
[2023-03-24 08:26] LABS: Anion Gap 15 mmol/L (10-20); BUN (Urea Nitrogen) 25 mg/dL (8.9-20.6); Calc. Creatinine Clearance 136 mL/min (70-130); Calcium 8.3 mg/dL (7.8-10.44); Carbon Dioxide 20 mmol/L (22-29); Chloride 116 mmol/L (98-107); Estimated GFR 126; Glucose 117 mg/dL (70-105); Potassium 3.6 mmol/L (3.5-5.1); Sodium 147 mmol/L (136-145)
[2023-03-24] MEDS: Ferrous Sulfate 325 MG TAB PO SCH ×2 (08:26→17:31)
[2023-03-24] MEDS: levETIRAcetam 500 MG (5 mL) VIAL SLOW IVP SCH ×2 (08:27→21:23)
[2023-03-24] MEDS: Cefepime 2 GM in Sodium Chloride 0.9% 100 ML IVPB SCH ×2 (08:27→21:23)
[2023-03-24] MEDS: Saccharomyces boulardii 250 MG CAP PO SCH (08:28)
[2023-03-24] MEDS: Ascorbic Acid 500 mg Chewable Tablet PO SCH ×2 (08:28→21:24)
[2023-03-24] MEDS: Lacosamide 200 MG in Sodium Chloride 0.9% 50 ML IVPB SCH ×2 (08:28→21:23)
[2023-03-24] MEDS: Lansoprazole 15 MG/5 ML (BATCHED)UDCUP PER TUBE SCH (08:28)
[2023-03-24] MEDS: Fentanyl CADD 100 ML IV SCH (08:28)
[2023-03-24] MEDS: QUEtiapine 25 MG TAB PO SCH (21:23)
[2023-03-24] MEDS: Metoprolol Tartrate 50 MG TAB PO SCH (21:24)
[2023-03-25] MEDS: Lorazepam 2 MG/ML VIAL SLOW IVP PRN ×2 (00:06→21:28)
[2023-03-25] MEDS: Morphine 2 MG/ML VIAL SLOW IVP PRN (00:07)
[2023-03-25] MEDS: Fentanyl CADD 100 ML IV SCH ×2 (01:08→22:05)
[2023-03-25] MEDS: Acetaminophen 650 MG/20.3 ML UDCUP PO SCH ×6 (01:55→21:18)
[2023-03-25 05:20] LABS: Hematocrit 24.8 % (42.0-52.0); Hemoglobin 8.1 g/dL (14.0-18.0); Manual Diff?? YES; Mean Corpuscular HGB CONC 32.7 g/dL (32.0-36.0); Mean Corpuscular Hemoglobin 30.3 pg (27.0-31.0); Mean Corpuscular Volume 92.9 fl (78.0-98.0); Mean Platelet Volume 10.3 fL (7.4-10.4); Platelet Count 350 10x3/uL (130-400); RBC Distribution Width 13.5 % (11.5-14.5); Red Blood Cell (RBC) Count 2.67 mill/uL (4.70-6.10); White Blood Cell (WBC) Count 12.8 10x3/uL (4.8-10.8)
[2023-03-25 05:49] LABS: Anion Gap 12 mmol/L (10-20); BUN (Urea Nitrogen) 21 mg/dL (8.9-20.6); Calc. Creatinine Clearance 127 mL/min (70-130); Calcium 8.3 mg/dL (7.8-10.44); Carbon Dioxide 24 mmol/L (22-29); Chloride 114 mmol/L (98-107); Estimated GFR 126; Glucose 110 mg/dL (70-105); Potassium 3.6 mmol/L (3.5-5.1); Sodium 146 mmol/L (136-145)
[2023-03-25 05:57] LABS: Delete Auto Diff?? YES
[2023-03-25] MEDS: levETIRAcetam 500 MG (5 mL) VIAL SLOW IVP SCH ×2 (07:48→21:18)
[2023-03-25] MEDS: QUEtiapine 25 MG TAB PO SCH ×2 (07:48→21:19)
[2023-03-25] MEDS: Saccharomyces boulardii 250 MG CAP PO SCH (07:48)
[2023-03-25] MEDS: Metoprolol Tartrate 50 MG TAB PO SCH ×2 (07:48→21:18)
[2023-03-25] MEDS: Ascorbic Acid 500 mg Chewable Tablet PO SCH ×2 (07:49→21:18)
[2023-03-25] MEDS: Ferrous Sulfate 325 MG TAB PO SCH ×2 (07:49→18:23)
[2023-03-25] MEDS: Cefepime 2 GM in Sodium Chloride 0.9% 100 ML IVPB SCH ×2 (07:52→21:18)
[2023-03-25] MEDS: Lansoprazole 15 MG/5 ML (BATCHED)UDCUP PER TUBE SCH (07:57)
[2023-03-25] MEDS: Lacosamide 200 MG in Sodium Chloride 0.9% 50 ML IVPB SCH ×2 (08:52→21:02)
[2023-03-25 09:54] LABS: Band 6 % (5-11); Lymphocytes 12 % (21-51); Metamyelocyte 2 % (0-0); Monocytes 9 % (0-10); Myelocyte 1 % (0-0); Neutrophil 70 % (42-75); Platelet Adequacy Comment Platelets Normal; Polychromasia SLIGHT = 2-3 cells (100X) (0-2/hpf)
[2023-03-25] MEDS: Scopolamine 1 mg/72 hour Patch TD SCH (15:00)
[2023-03-26] MEDS: Dexmedetomidine 400 MCG, Admixture Fee 1 EACH in Sodium Chloride 0.9% 96 ML IVPB SCH ×2 (00:46→14:23)
[2023-03-26] MEDS: Acetaminophen 650 MG/20.3 ML UDCUP PO SCH ×6 (01:19→21:03)
[2023-03-26] MEDS: Lorazepam 2 MG/ML VIAL SLOW IVP PRN (01:21)
[2023-03-26 04:25] LABS: #Monocytes 0.7 thou/uL (0.11-0.59); #Neutrophils 12.9 thou/uL (1.40-6.50); %Basophils 0.2 % (0.0-1.0); %Eosinophils 0.3 % (0.0-10.0); %Lymphocytes 8.3 % (21.0-51.0); %Monocytes 4.7 % (0.0-10.0); %Neutrophils 84.5 % (42.0-75.0); Hematocrit 25.6 % (42.0-52.0); Hemoglobin 8.3 g/dL (14.0-18.0); Mean Corpuscular HGB CONC 32.4 g/dL (32.0-36.0); Mean Corpuscular Hemoglobin 29.4 pg (27.0-31.0); Mean Corpuscular Volume 90.8 fl (78.0-98.0); Mean Platelet Volume 10.5 fL (7.4-10.4); Platelet Count 392 10x3/uL (130-400); RBC Distribution Width 13.4 % (11.5-14.5); Red Blood Cell (RBC) Count 2.82 mill/uL (4.70-6.10); White Blood Cell (WBC) Count 15.2 10x3/uL (4.8-10.8)
[2023-03-26 04:53] LABS: Anion Gap 12 mmol/L (10-20); BUN (Urea Nitrogen) 24 mg/dL (8.9-20.6); Calc. Creatinine Clearance 135 mL/min (70-130); Calcium 8.5 mg/dL (7.8-10.44); Carbon Dioxide 21 mmol/L (22-29); Chloride 113 mmol/L (98-107); Estimated GFR 128; Glucose 125 mg/dL (70-105); Potassium 3.4 mmol/L (3.5-5.1); Sodium 143 mmol/L (136-145)
[2023-03-26 06:40] LABS: Actual Bicarbonate (HCO3a) 21.4 mEq/L (22-28); Base Excess (BEa) -1.8 mEq/L (-2.0 to +3.0); CO2 Tension 30.4 mmHg (35.0-45.0); Calcium, Ionized (arterial) 1.18 mmol/L (1.12-1.30); Hematocrit-ABG 26 % (42.0-52.0); O2 Tension (PaO2), arterial 156.7 mmHg (80.0-100.0); Potassium - ABG Lab 3.57 mmol/L (3.70-5.30); pH, Arterial 7.465 (7.35-7.45)
[2023-03-26 06:41] LABS: Puncture Site RBA
[2023-03-26] MEDS: Cefepime 2 GM in Sodium Chloride 0.9% 100 ML IVPB SCH ×2 (08:01→20:42)
[2023-03-26] MEDS: QUEtiapine 25 MG TAB PO SCH ×2 (08:01→20:41)
[2023-03-26] MEDS: Saccharomyces boulardii 250 MG CAP PO SCH (08:01)
[2023-03-26] MEDS: Ferrous Sulfate 325 MG TAB PO SCH ×2 (08:01→16:56)
[2023-03-26] MEDS: Ascorbic Acid 500 mg Chewable Tablet PO SCH ×2 (08:01→20:41)
[2023-03-26] MEDS: Metoprolol Tartrate 50 MG TAB PO SCH ×2 (08:01→20:42)
[2023-03-26] MEDS: levETIRAcetam 500 MG (5 mL) VIAL SLOW IVP SCH ×2 (08:02→20:42)
[2023-03-26] MEDS: Lansoprazole 15 MG/5 ML (BATCHED)UDCUP PER TUBE SCH (08:02)
[2023-03-26] MEDS: Lacosamide 200 MG in Sodium Chloride 0.9% 50 ML IVPB SCH ×2 (09:33→20:56)
[2023-03-26] MEDS ORDERED: Potassium Bicarbonate/Cit Ac 20 MEQ TAB PO SCH (10:00)
[2023-03-26] MEDS: Amantadine HCl 100 mg Capsule PO SCH (20:41)
[2023-03-27] MEDS: Acetaminophen 650 MG/20.3 ML UDCUP PO SCH ×6 (03:25→22:26)
[2023-03-27] MEDS: Fentanyl CADD 100 ML IV SCH (04:05)
[2023-03-27 05:20] LABS: #Eosinphils 0.1 thou/uL (0.0-0.7); #Monocytes 0.7 thou/uL (0.11-0.59); #Neutrophils 11.6 thou/uL (1.40-6.50); %Basophils 0.1 % (0.0-1.0); %Eosinophils 0.4 % (0.0-10.0); %Lymphocytes 9.6 % (21.0-51.0); %Monocytes 4.9 % (0.0-10.0); %Neutrophils 83.1 % (42.0-75.0); Hematocrit 24.3 % (42.0-52.0); Hemoglobin 7.9 g/dL (14.0-18.0); Mean Corpuscular HGB CONC 32.5 g/dL (32.0-36.0); Mean Corpuscular Hemoglobin 29.9 pg (27.0-31.0); Mean Platelet Volume 10.2 fL (7.4-10.4); Platelet Count 537 10x3/uL (130-400); Red Blood Cell (RBC) Count 2.64 mill/uL (4.70-6.10)
[2023-03-27 05:45] LABS: Anion Gap 14 mmol/L (10-20); BUN (Urea Nitrogen) 25 mg/dL (8.9-20.6); Calc. Creatinine Clearance 128 mL/min (70-130); Calcium 8.6 mg/dL (7.8-10.44); Carbon Dioxide 22 mmol/L (22-29); Chloride 111 mmol/L (98-107); Estimated GFR 130; Glucose 136 mg/dL (70-105); Potassium 3.8 mmol/L (3.5-5.1); Sodium 143 mmol/L (136-145)
[2023-03-27] MEDS: Lansoprazole 15 MG/5 ML (BATCHED)UDCUP PER TUBE SCH (08:10)
[2023-03-27] MEDS: Cefepime 2 GM in Sodium Chloride 0.9% 100 ML IVPB SCH ×2 (08:10→20:06)
[2023-03-27] MEDS: Lacosamide 200 MG in Sodium Chloride 0.9% 50 ML IVPB SCH ×2 (08:11→22:40)
[2023-03-27] MEDS: Ascorbic Acid 500 mg Chewable Tablet PO SCH ×2 (08:11→20:06)
[2023-03-27] MEDS: levETIRAcetam 500 MG (5 mL) VIAL SLOW IVP SCH ×2 (08:11→20:06)
[2023-03-27] MEDS: Ferrous Sulfate 325 MG TAB PO SCH ×2 (08:11→16:58)
[2023-03-27] MEDS: Saccharomyces boulardii 250 MG CAP PO SCH (08:11)
[2023-03-27] MEDS: Metoprolol Tartrate 50 MG TAB PO SCH ×2 (08:11→20:06)
[2023-03-27] MEDS: QUEtiapine 25 MG TAB PO SCH ×2 (08:12→20:06)
[2023-03-27] MEDS: Amantadine HCl 100 mg Capsule PO SCH ×2 (08:12→20:06)
[2023-03-27] MEDS: cloNIDine 0.2 MG TAB PO SCH ×2 (11:01→16:58)
[2023-03-27] MEDS: Dexmedetomidine 400 MCG, Admixture Fee 1 EACH in Sodium Chloride 0.9% 96 ML IVPB SCH (12:34)
[2023-03-27] MEDS: Lorazepam 2 MG/ML VIAL SLOW IVP PRN ×3 (14:21→19:39)
[2023-03-27] MEDS: Morphine 2 MG/ML VIAL SLOW IVP PRN ×3 (14:57→22:26)
[2023-03-27] MEDS: Dexmedetomidine 1,000 MCG, Admixture Fee 1 EACH in Sodium Chloride 0.9% 250 ML 240 ML IVPB SCH (22:31)
[2023-03-28] MEDS: cloNIDine 0.2 MG TAB PO SCH ×5 (01:11→22:16)
[2023-03-28] MEDS: Lorazepam 2 MG/ML VIAL SLOW IVP PRN ×3 (02:48→11:39)
[2023-03-28] MEDS: Acetaminophen 650 MG/20.3 ML UDCUP PO SCH ×6 (02:54→22:24)
[2023-03-28 05:09] LABS: #Eosinphils 0.1 thou/uL (0.0-0.7); #Monocytes 0.8 thou/uL (0.11-0.59); #Neutrophils 14.4 thou/uL (1.40-6.50); %Basophils 0.2 % (0.0-1.0); %Eosinophils 0.5 % (0.0-10.0); %Lymphocytes 8.9 % (21.0-51.0); %Monocytes 4.5 % (0.0-10.0); %Neutrophils 84.3 % (42.0-75.0); Hematocrit 26.2 % (42.0-52.0); Hemoglobin 8.4 g/dL (14.0-18.0); Mean Corpuscular HGB CONC 32.1 g/dL (32.0-36.0); Mean Corpuscular Hemoglobin 29.6 pg (27.0-31.0); Mean Corpuscular Volume 92.3 fl (78.0-98.0); Mean Platelet Volume 10.2 fL (7.4-10.4); RBC Distribution Width 12.6 % (11.5-14.5); Red Blood Cell (RBC) Count 2.84 mill/uL (4.70-6.10)
[2023-03-28 05:12] LABS: Platelet Count 738 10x3/uL (130-400)
[2023-03-28 05:31] LABS: Anion Gap 14 mmol/L (10-20); BUN (Urea Nitrogen) 27 mg/dL (8.9-20.6); Calc. Creatinine Clearance 111 mL/min (70-130); Carbon Dioxide 22 mmol/L (22-29); Chloride 110 mmol/L (98-107); Estimated GFR 125; Glucose 98 mg/dL (70-105); Potassium 4.2 mmol/L (3.5-5.1); Sodium 142 mmol/L (136-145)
[2023-03-28] MEDS: Morphine 2 MG/ML VIAL SLOW IVP PRN (07:01)
[2023-03-28] MEDS ORDERED: Lidocaine 1% (PF) 30 ML VIAL FS SCH (08:00)
[2023-03-28] MEDS: Fentanyl CADD 100 ML IV SCH (08:02)
[2023-03-28] MEDS: levETIRAcetam 500 MG (5 mL) VIAL SLOW IVP SCH ×2 (08:07→22:23)
[2023-03-28] MEDS: Amantadine HCl 100 mg Capsule PO SCH ×2 (08:07→22:22)
[2023-03-28] MEDS: QUEtiapine 25 MG TAB PO SCH ×2 (08:07→22:24)
[2023-03-28] MEDS: Cefepime 2 GM in Sodium Chloride 0.9% 100 ML IVPB SCH ×2 (08:07→22:22)
[2023-03-28] MEDS: Ferrous Sulfate 325 MG TAB PO SCH ×2 (08:07→16:57)
[2023-03-28] MEDS: Metoprolol Tartrate 50 MG TAB PO SCH ×2 (08:07→22:23)
[2023-03-28] MEDS: Ascorbic Acid 500 mg Chewable Tablet PO SCH ×2 (08:07→22:22)
[2023-03-28] MEDS: Lansoprazole 15 MG/5 ML (BATCHED)UDCUP PER TUBE SCH (08:07)
[2023-03-28] MEDS: Saccharomyces boulardii 250 MG CAP PO SCH (08:07)
[2023-03-28] MEDS: Dexmedetomidine 1,000 MCG, Admixture Fee 1 EACH in Sodium Chloride 0.9% 250 ML 240 ML IVPB SCH (09:34)
[2023-03-28] MEDS: Lacosamide 200 MG in Sodium Chloride 0.9% 50 ML IVPB SCH (09:35)
[2023-03-28] MEDS: Scopolamine 1 mg/72 hour Patch TD SCH (15:03)
[2023-03-29] MEDS: Lacosamide 200 MG in Sodium Chloride 0.9% 50 ML IVPB SCH ×3 (00:32→22:33)
[2023-03-29] MEDS: Acetaminophen 650 MG/20.3 ML UDCUP PO SCH ×6 (04:00→21:31)
[2023-03-29] MEDS: cloNIDine 0.2 MG TAB PO SCH ×3 (04:01→16:57)
[2023-03-29 04:35] LABS: #Eosinphils 0.1 thou/uL (0.0-0.7); #Monocytes 0.7 thou/uL (0.11-0.59); #Neutrophils 14.2 thou/uL (1.40-6.50); %Basophils 0.1 % (0.0-1.0); %Eosinophils 0.4 % (0.0-10.0); %Lymphocytes 8.9 % (21.0-51.0); %Monocytes 4.2 % (0.0-10.0); %Neutrophils 85.3 % (42.0-75.0); Hematocrit 24.6 % (42.0-52.0); Hemoglobin 8.1 g/dL (14.0-18.0); Mean Corpuscular HGB CONC 32.9 g/dL (32.0-36.0); Mean Corpuscular Hemoglobin 30.6 pg (27.0-31.0); Mean Corpuscular Volume 92.8 fl (78.0-98.0); Mean Platelet Volume 10.2 fL (7.4-10.4); Platelet Count 801 10x3/uL (130-400); RBC Distribution Width 12.6 % (11.5-14.5); Red Blood Cell (RBC) Count 2.65 mill/uL (4.70-6.10); White Blood Cell (WBC) Count 16.7 10x3/uL (4.8-10.8)
[2023-03-29 04:56] LABS: Anion Gap 12 mmol/L (10-20); BUN (Urea Nitrogen) 29 mg/dL (8.9-20.6); Calc. Creatinine Clearance 110 mL/min (70-130); Calcium 8.9 mg/dL (7.8-10.44); Carbon Dioxide 24 mmol/L (22-29); Chloride 108 mmol/L (98-107); Estimated GFR 124; Glucose 131 mg/dL (70-105); Potassium 4.1 mmol/L (3.5-5.1); Sodium 140 mmol/L (136-145)
[2023-03-29] MEDS: levETIRAcetam 500 MG (5 mL) VIAL SLOW IVP SCH ×2 (09:15→21:31)
[2023-03-29] MEDS: Saccharomyces boulardii 250 MG CAP PO SCH (09:16)
[2023-03-29] MEDS: Amantadine HCl 100 mg Capsule PO SCH ×2 (09:16→21:31)
[2023-03-29] MEDS: Enoxaparin 40 MG (0.4 mL) SYRINGE SC SCH (09:16)
[2023-03-29] MEDS: Lansoprazole 15 MG/5 ML (BATCHED)UDCUP PER TUBE SCH (09:16)
[2023-03-29] MEDS: Ascorbic Acid 500 mg Chewable Tablet PO SCH ×2 (09:16→21:31)
[2023-03-29] MEDS: Ferrous Sulfate 325 MG TAB PO SCH ×2 (09:16→17:10)
[2023-03-29] MEDS: Cefepime 2 GM in Sodium Chloride 0.9% 100 ML IVPB SCH ×2 (09:16→21:30)
[2023-03-29] MEDS: Metoprolol Tartrate 50 MG TAB PO SCH ×2 (09:16→21:31)
[2023-03-29] MEDS: QUEtiapine 25 MG TAB PO SCH ×2 (09:16→21:31)
[2023-03-30] MEDS: cloNIDine 0.2 MG TAB PO SCH ×5 (00:16→23:35)
[2023-03-30] MEDS: Fentanyl CADD 100 ML IV SCH (00:50)
[2023-03-30] MEDS: Dexmedetomidine 1,000 MCG, Admixture Fee 1 EACH in Sodium Chloride 0.9% 250 ML 240 ML IVPB SCH ×2 (02:59→19:24)
[2023-03-30] MEDS: Acetaminophen 650 MG/20.3 ML UDCUP PO SCH ×6 (03:06→23:34)
[2023-03-30] MEDS ORDERED: QUEtiapine 25 MG TAB PO SCH (04:30)
[2023-03-30 04:53] LABS: #Eosinphils 0.1 thou/uL (0.0-0.7); #Monocytes 0.5 thou/uL (0.11-0.59); #Neutrophils 8.2 thou/uL (1.40-6.50); %Basophils 0.2 % (0.0-1.0); %Eosinophils 0.7 % (0.0-10.0); %Lymphocytes 12.8 % (21.0-51.0); %Monocytes 5.2 % (0.0-10.0); Hematocrit 24.5 % (42.0-52.0); Hemoglobin 7.9 g/dL (14.0-18.0); Mean Corpuscular HGB CONC 32.2 g/dL (32.0-36.0); Mean Corpuscular Hemoglobin 29.8 pg (27.0-31.0); Mean Corpuscular Volume 92.5 fl (78.0-98.0); Platelet Count 899 10x3/uL (130-400); RBC Distribution Width 12.8 % (11.5-14.5); Red Blood Cell (RBC) Count 2.65 mill/uL (4.70-6.10); White Blood Cell (WBC) Count 10.2 10x3/uL (4.8-10.8)
[2023-03-30 05:10] LABS: Anion Gap 12 mmol/L (10-20); BUN (Urea Nitrogen) 25 mg/dL (8.9-20.6); Calc. Creatinine Clearance 117 mL/min (70-130); Calcium 8.6 mg/dL (7.8-10.44); Carbon Dioxide 23 mmol/L (22-29); Chloride 109 mmol/L (98-107); Estimated GFR 127; Glucose 112 mg/dL (70-105); Potassium 3.9 mmol/L (3.5-5.1); Sodium 140 mmol/L (136-145)
[2023-03-30] MEDS: Lansoprazole 15 MG/5 ML (BATCHED)UDCUP PER TUBE SCH (08:09)
[2023-03-30] MEDS: Cefepime 2 GM in Sodium Chloride 0.9% 100 ML IVPB SCH ×2 (08:09→19:23)
[2023-03-30] MEDS: Enoxaparin 40 MG (0.4 mL) SYRINGE SC SCH (08:09)
[2023-03-30] MEDS: Ferrous Sulfate 325 MG TAB PO SCH ×2 (08:10→16:12)
[2023-03-30] MEDS: levETIRAcetam 500 MG (5 mL) VIAL SLOW IVP SCH ×2 (08:10→19:24)
[2023-03-30] MEDS: Saccharomyces boulardii 250 MG CAP PO SCH (08:10)
[2023-03-30] MEDS: Ascorbic Acid 500 mg Chewable Tablet PO SCH ×2 (08:10→19:23)
[2023-03-30] MEDS: Amantadine HCl 100 mg Capsule PO SCH ×2 (08:10→19:23)
[2023-03-30] MEDS: Metoprolol Tartrate 50 MG TAB PO SCH ×2 (08:11→19:23)
[2023-03-30] MEDS: Lacosamide 200 MG in Sodium Chloride 0.9% 50 ML IVPB SCH ×2 (08:45→20:07)
[2023-03-30] MEDS ORDERED: DC Sedation Protocol FS ONE (15:32)
[2023-03-30] MEDS: fentaNYL 50 mcg/hour Patch TD SCH (16:11)
[2023-03-30] MEDS ORDERED: Lorazepam 2 MG/ML VIAL ONE (17:47)
[2023-03-30] MEDS ORDERED: Lorazepam 2 MG/ML VIAL SLOW IVP SCH (18:00)
[2023-03-31] MEDS: Acetaminophen 650 MG/20.3 ML UDCUP PO SCH ×6 (03:16→21:06)
[2023-03-31 05:45] LABS: #Eosinphils 0.1 thou/uL (0.0-0.7); #Monocytes 0.6 thou/uL (0.11-0.59); #Neutrophils 10.8 thou/uL (1.40-6.50); %Basophils 0.2 % (0.0-1.0); %Eosinophils 0.8 % (0.0-10.0); %Lymphocytes 10.3 % (21.0-51.0); %Monocytes 4.3 % (0.0-10.0); %Neutrophils 83.7 % (42.0-75.0); Hemoglobin 8.8 g/dL (14.0-18.0); Mean Corpuscular HGB CONC 32.6 g/dL (32.0-36.0); Mean Corpuscular Hemoglobin 30.1 pg (27.0-31.0); Mean Corpuscular Volume 92.5 fl (78.0-98.0); Mean Platelet Volume 9.8 fL (7.4-10.4); Platelet Count 1178 10x3/uL (130-400); RBC Distribution Width 12.7 % (11.5-14.5); Red Blood Cell (RBC) Count 2.92 mill/uL (4.70-6.10); White Blood Cell (WBC) Count 12.9 10x3/uL (4.8-10.8)
[2023-03-31 06:09] LABS: Anion Gap 12 mmol/L (10-20); BUN (Urea Nitrogen) 27 mg/dL (8.9-20.6); Calc. Creatinine Clearance 121 mL/min (70-130); Calcium 8.8 mg/dL (7.8-10.44); Carbon Dioxide 25 mmol/L (22-29); Chloride 106 mmol/L (98-107); Estimated GFR 128; Glucose 112 mg/dL (70-105); Potassium 3.5 mmol/L (3.5-5.1); Sodium 139 mmol/L (136-145)
[2023-03-31] MEDS: cloNIDine 0.2 MG TAB PO SCH ×4 (07:16→23:59)
[2023-03-31] MEDS ORDERED: Potassium Bicarbonate/Cit Ac 20 MEQ TAB PER TUBE SCH (08:00)
[2023-03-31] MEDS: Cefepime 2 GM in Sodium Chloride 0.9% 100 ML IVPB SCH (08:55)
[2023-03-31] MEDS: Lacosamide 200 MG in Sodium Chloride 0.9% 50 ML IVPB SCH ×2 (08:56→21:05)
[2023-03-31] MEDS: Dexmedetomidine 1,000 MCG, Admixture Fee 1 EACH in Sodium Chloride 0.9% 250 ML 240 ML IVPB SCH ×2 (08:56→21:06)
[2023-03-31] MEDS: Enoxaparin 40 MG (0.4 mL) SYRINGE SC SCH (08:56)
[2023-03-31] MEDS: Lansoprazole 15 MG/5 ML (BATCHED)UDCUP PER TUBE SCH (08:56)
[2023-03-31] MEDS: Amantadine HCl 100 mg Capsule PO SCH ×2 (08:57→21:07)
[2023-03-31] MEDS: Ascorbic Acid 500 mg Chewable Tablet PO SCH ×2 (08:57→21:07)
[2023-03-31] MEDS: levETIRAcetam 500 MG (5 mL) VIAL SLOW IVP SCH ×2 (08:57→21:07)
[2023-03-31] MEDS: Ferrous Sulfate 325 MG TAB PO SCH ×2 (08:57→16:10)
[2023-03-31] MEDS: Metoprolol Tartrate 50 MG TAB PO SCH ×2 (09:18→21:08)
[2023-03-31] MEDS: Saccharomyces boulardii 250 MG CAP PO SCH (09:19)
[2023-03-31 12:42] LABS: Potassium 4.4 mmol/L (3.5-5.1)
[2023-03-31] MEDS: Scopolamine 1 mg/72 hour Patch TD SCH (14:59)
[2023-04-01] MEDS: Acetaminophen 650 MG/20.3 ML UDCUP PO SCH ×6 (02:21→21:48)
[2023-04-01 05:15] LABS: #Eosinphils 0.1 thou/uL (0.0-0.7); #Monocytes 0.6 thou/uL (0.11-0.59); #Neutrophils 9.5 thou/uL (1.40-6.50); %Basophils 0.2 % (0.0-1.0); %Eosinophils 0.4 % (0.0-10.0); %Lymphocytes 11.2 % (21.0-51.0); %Monocytes 5.1 % (0.0-10.0); %Neutrophils 82.5 % (42.0-75.0); Hematocrit 26.4 % (42.0-52.0); Hemoglobin 8.8 g/dL (14.0-18.0); Mean Corpuscular HGB CONC 33.3 g/dL (32.0-36.0); Mean Corpuscular Hemoglobin 30.4 pg (27.0-31.0); Mean Corpuscular Volume 91.3 fl (78.0-98.0); Mean Platelet Volume 9.4 fL (7.4-10.4); Platelet Count 1218 10x3/uL (130-400); RBC Distribution Width 12.9 % (11.5-14.5); Red Blood Cell (RBC) Count 2.89 mill/uL (4.70-6.10); White Blood Cell (WBC) Count 11.5 10x3/uL (4.8-10.8)
[2023-04-01] MEDS: cloNIDine 0.2 MG TAB PO SCH ×4 (05:38→23:18)
[2023-04-01 05:49] LABS: BUN (Urea Nitrogen) 21 mg/dL (8.9-20.6); Calc. Creatinine Clearance 127 mL/min (70-130); Calcium 8.7 mg/dL (7.8-10.44); Carbon Dioxide 26 mmol/L (22-29); Estimated GFR 130; Glucose 110 mg/dL (70-105)
[2023-04-01 06:03] LABS: Anion Gap 13 mmol/L (10-20); Chloride 103 mmol/L (98-107); Sodium 137 mmol/L (136-145)
[2023-04-01] MEDS: Ascorbic Acid 500 mg Chewable Tablet PO SCH ×2 (09:06→20:06)
[2023-04-01] MEDS: Saccharomyces boulardii 250 MG CAP PO SCH (09:06)
[2023-04-01] MEDS: Ferrous Sulfate 325 MG TAB PO SCH ×2 (09:06→17:06)
[2023-04-01] MEDS: Amantadine HCl 100 mg Capsule PO SCH ×2 (09:07→20:06)
[2023-04-01] MEDS: Lansoprazole 15 MG/5 ML (BATCHED)UDCUP PER TUBE SCH (09:07)
[2023-04-01] MEDS: Enoxaparin 40 MG (0.4 mL) SYRINGE SC SCH (09:07)
[2023-04-01] MEDS: levETIRAcetam 500 MG (5 mL) VIAL SLOW IVP SCH ×2 (09:07→20:07)
[2023-04-01] MEDS: Metoprolol Tartrate 50 MG TAB PO SCH (09:07)
[2023-04-01] MEDS: Lacosamide 200 MG in Sodium Chloride 0.9% 50 ML IVPB SCH ×2 (09:15→21:47)
[2023-04-01] MEDS: QUEtiapine 25 MG TAB PO SCH ×2 (09:55→20:06)
[2023-04-01] MEDS: Dexmedetomidine 1,000 MCG, Admixture Fee 1 EACH in Sodium Chloride 0.9% 250 ML 240 ML IVPB SCH (17:06)
[2023-04-02] MEDS: Acetaminophen 650 MG/20.3 ML UDCUP PO SCH ×6 (01:35→21:01)
[2023-04-02 04:44] LABS: #Eosinphils 0.1 thou/uL (0.0-0.7); #Monocytes 0.6 thou/uL (0.11-0.59); #Neutrophils 8.9 thou/uL (1.40-6.50); %Basophils 0.2 % (0.0-1.0); %Eosinophils 0.4 % (0.0-10.0); %Lymphocytes 12.6 % (21.0-51.0); %Monocytes 5.8 % (0.0-10.0); %Neutrophils 80.1 % (42.0-75.0); Hematocrit 28.3 % (42.0-52.0); Hemoglobin 9.3 g/dL (14.0-18.0); Mean Corpuscular HGB CONC 32.9 g/dL (32.0-36.0); Mean Corpuscular Hemoglobin 30.4 pg (27.0-31.0); Mean Corpuscular Volume 92.5 fl (78.0-98.0); Mean Platelet Volume 9.7 fL (7.4-10.4); RBC Distribution Width 13.1 % (11.5-14.5); Red Blood Cell (RBC) Count 3.06 mill/uL (4.70-6.10); White Blood Cell (WBC) Count 11.1 10x3/uL (4.8-10.8)
[2023-04-02 04:50] LABS: Platelet Count 1311 10x3/uL (130-400)
[2023-04-02 05:04] LABS: Anion Gap 13 mmol/L (10-20); BUN (Urea Nitrogen) 17 mg/dL (8.9-20.6); Calc. Creatinine Clearance 113 mL/min (70-130); Calcium 9.1 mg/dL (7.8-10.44); Carbon Dioxide 26 mmol/L (22-29); Chloride 105 mmol/L (98-107); Estimated GFR 126; Glucose 101 mg/dL (70-105); Potassium 3.9 mmol/L (3.5-5.1); Sodium 140 mmol/L (136-145)
[2023-04-02] MEDS: cloNIDine 0.2 MG TAB PO SCH ×4 (06:24→23:10)
[2023-04-02] MEDS: Lansoprazole 15 MG/5 ML (BATCHED)UDCUP PER TUBE SCH (08:17)
[2023-04-02] MEDS: Lacosamide 200 MG in Sodium Chloride 0.9% 50 ML IVPB SCH ×2 (08:17→20:58)
[2023-04-02] MEDS: Ascorbic Acid 500 mg Chewable Tablet PO SCH ×2 (08:18→21:01)
[2023-04-02] MEDS: Saccharomyces boulardii 250 MG CAP PO SCH (08:18)
[2023-04-02] MEDS: Amantadine HCl 100 mg Capsule PO SCH ×2 (08:18→21:00)
[2023-04-02] MEDS: levETIRAcetam 500 MG (5 mL) VIAL SLOW IVP SCH ×2 (08:18→21:03)
[2023-04-02] MEDS: Enoxaparin 40 MG (0.4 mL) SYRINGE SC SCH (08:18)
[2023-04-02] MEDS: QUEtiapine 25 MG TAB PO SCH ×2 (08:18→21:01)
[2023-04-02] MEDS: Ferrous Sulfate 325 MG TAB PO SCH ×2 (08:18→18:49)
[2023-04-02] MEDS ORDERED: Lorazepam 2 MG/ML VIAL SLOW IVP PRN ×2 (12:52→14:35)
[2023-04-02] MEDS: Methocarbamol 500 MG TAB PER TUBE SCH ×2 (14:04→20:58)
[2023-04-02] MEDS: fentaNYL 50 mcg/hour Patch TD SCH (14:05)
[2023-04-02] MEDS ORDERED: Metoprolol Tartrate 5 MG (5 mL) VIAL ONE (14:30)
[2023-04-02] MEDS ORDERED: Lorazepam 2 MG/ML VIAL ONE (14:30)
[2023-04-02] MEDS ORDERED: Lorazepam 2 MG/ML VIAL SLOW IVP SCH (14:45)
[2023-04-02] MEDS ORDERED: Metoprolol Tartrate 5 MG (5 mL) VIAL IVP SCH (14:45)
[2023-04-02] MEDS: Metoprolol Tartrate 50 MG TAB PO SCH ×2 (21:00→21:17)
[2023-04-03] MEDS: Acetaminophen 650 MG/20.3 ML UDCUP PO SCH ×3 (03:14→11:15)
[2023-04-03] MEDS: Dexmedetomidine 1,000 MCG, Admixture Fee 1 EACH in Sodium Chloride 0.9% 250 ML 240 ML IVPB SCH ×2 (03:15→10:01)
[2023-04-03 03:27] LABS: #Eosinphils 0.1 thou/uL (0.0-0.7); #Monocytes 0.8 thou/uL (0.11-0.59); #Neutrophils 8.8 thou/uL (1.40-6.50); %Basophils 0.4 % (0.0-1.0); %Eosinophils 0.8 % (0.0-10.0); %Lymphocytes 13.5 % (21.0-51.0); %Monocytes 6.8 % (0.0-10.0); Hematocrit 30.2 % (42.0-52.0); Hemoglobin 9.8 g/dL (14.0-18.0); Mean Corpuscular HGB CONC 32.5 g/dL (32.0-36.0); Mean Corpuscular Hemoglobin 30.3 pg (27.0-31.0); Mean Corpuscular Volume 93.5 fl (78.0-98.0); Mean Platelet Volume 9.3 fL (7.4-10.4); RBC Distribution Width 13.6 % (11.5-14.5); Red Blood Cell (RBC) Count 3.23 mill/uL (4.70-6.10); White Blood Cell (WBC) Count 11.2 10x3/uL (4.8-10.8)
[2023-04-03 03:48] LABS: Anion Gap 14 mmol/L (10-20); BUN (Urea Nitrogen) 36 mg/dL (8.9-20.6); Calc. Creatinine Clearance 98 mL/min (70-130); Calcium 9.5 mg/dL (7.8-10.44); Carbon Dioxide 23 mmol/L (22-29); Chloride 107 mmol/L (98-107); Estimated GFR 116; Glucose 150 mg/dL (70-105); Potassium 3.9 mmol/L (3.5-5.1); Sodium 140 mmol/L (136-145)
[2023-04-03 03:54] LABS: Platelet Count 1242 10x3/uL (130-400)
[2023-04-03] MEDS: cloNIDine 0.2 MG TAB PO SCH ×2 (05:50→12:25)
[2023-04-03] MEDS ORDERED: QUEtiapine 25 MG TAB PER TUBE SCH ×2 (09:30→21:00)
[2023-04-03] MEDS: Ascorbic Acid 500 mg Chewable Tablet PO SCH ×2 (09:58→20:07)
[2023-04-03] MEDS: Saccharomyces boulardii 250 MG CAP PO SCH (09:58)
[2023-04-03] MEDS: QUEtiapine 25 MG TAB PO SCH (09:58)
[2023-04-03] MEDS: Amantadine HCl 100 mg Capsule PO SCH ×2 (09:59→20:07)
[2023-04-03] MEDS: Ferrous Sulfate 325 MG TAB PO SCH ×2 (09:59→16:51)
[2023-04-03] MEDS: Methocarbamol 500 MG TAB PER TUBE SCH ×3 (09:59→20:07)
[2023-04-03] MEDS: Lansoprazole 15 MG/5 ML (BATCHED)UDCUP PER TUBE SCH (09:59)
[2023-04-03] MEDS: Enoxaparin 40 MG (0.4 mL) SYRINGE SC SCH (10:00)
[2023-04-03] MEDS: Metoprolol Tartrate 50 MG TAB PO SCH ×2 (10:33→20:09)
[2023-04-03] MEDS: levETIRAcetam 500 MG (5 mL) VIAL SLOW IVP SCH ×2 (10:34→20:07)
[2023-04-03] MEDS ORDERED: Acetaminophen 650 MG/20.3 ML UDCUP PO PRN (12:12)
[2023-04-03] MEDS: Lacosamide 200 MG in Sodium Chloride 0.9% 50 ML IVPB SCH ×2 (12:17→21:24)
[2023-04-03] MEDS: Scopolamine 1 mg/72 hour Patch TD SCH (16:06)
[2023-04-03] MEDS: QUEtiapine 25 MG TAB PER TUBE SCH (20:07)
[2023-04-04 08:28] LABS: #Basophils 0.1 thou/uL (0.0-0.2); #Eosinphils 0.1 thou/uL (0.0-0.7); #Monocytes 0.6 thou/uL (0.11-0.59); #Neutrophils 9.7 thou/uL (1.40-6.50); %Basophils 0.5 % (0.0-1.0); %Eosinophils 0.9 % (0.0-10.0); %Lymphocytes 16.5 % (21.0-51.0); %Monocytes 4.5 % (0.0-10.0); %Neutrophils 77.1 % (42.0-75.0); Hematocrit 34.2 % (42.0-52.0); Hemoglobin 10.7 g/dL (14.0-18.0); Mean Corpuscular HGB CONC 31.3 g/dL (32.0-36.0); Mean Corpuscular Hemoglobin 30.3 pg (27.0-31.0); Mean Corpuscular Volume 96.9 fl (78.0-98.0); Mean Platelet Volume 9.5 fL (7.4-10.4); Platelet Count 1213 10x3/uL (130-400); RBC Distribution Width 13.9 % (11.5-14.5); Red Blood Cell (RBC) Count 3.53 mill/uL (4.70-6.10); White Blood Cell (WBC) Count 12.6 10x3/uL (4.8-10.8)
[2023-04-04] MEDS: Ascorbic Acid 500 mg Chewable Tablet PO SCH ×2 (08:37→19:38)
[2023-04-04] MEDS: Methocarbamol 500 MG TAB PER TUBE SCH ×3 (08:37→19:38)
[2023-04-04] MEDS: QUEtiapine 25 MG TAB PER TUBE SCH ×2 (08:37→19:37)
[2023-04-04] MEDS: Saccharomyces boulardii 250 MG CAP PO SCH (08:37)
[2023-04-04] MEDS: Ferrous Sulfate 325 MG TAB PO SCH ×2 (08:37→16:00)
[2023-04-04] MEDS: levETIRAcetam 500 MG (5 mL) VIAL SLOW IVP SCH ×2 (08:37→19:37)
[2023-04-04] MEDS: Lansoprazole 15 MG/5 ML (BATCHED)UDCUP PER TUBE SCH (08:37)
[2023-04-04] MEDS: Enoxaparin 40 MG (0.4 mL) SYRINGE SC SCH (08:37)
[2023-04-04] MEDS: Amantadine HCl 100 mg Capsule PO SCH ×2 (08:37→19:37)
[2023-04-04] MEDS: Metoprolol Tartrate 50 MG TAB PO SCH ×2 (09:57→19:38)
[2023-04-04] MEDS: Lacosamide 200 MG in Sodium Chloride 0.9% 50 ML IVPB SCH ×2 (11:24→21:35)
[2023-04-04 15:10] LABS: Anion Gap 16 mmol/L (10-20); BUN (Urea Nitrogen) 28 mg/dL (8.9-20.6); Calc. Creatinine Clearance 105 mL/min (70-130); Calcium 9.7 mg/dL (7.8-10.44); Carbon Dioxide 24 mmol/L (22-29); Chloride 106 mmol/L (98-107); Estimated GFR 124; Glucose 90 mg/dL (70-105); Potassium 3.5 mmol/L (3.5-5.1); Sodium 142 mmol/L (136-145)
[2023-04-04] MEDS: ALPRAZolam 0.25 MG TAB PO PRN ×2 (15:59→19:37)
[2023-04-05 07:37] LABS: #Eosinphils 0.1 thou/uL (0.0-0.7); #Monocytes 0.7 thou/uL (0.11-0.59); #Neutrophils 7.2 thou/uL (1.40-6.50); %Basophils 0.4 % (0.0-1.0); %Eosinophils 0.9 % (0.0-10.0); %Monocytes 7.3 % (0.0-10.0); Hemoglobin 10.5 g/dL (14.0-18.0); Mean Corpuscular HGB CONC 31.8 g/dL (32.0-36.0); Mean Corpuscular Hemoglobin 29.8 pg (27.0-31.0); Mean Platelet Volume 9.5 fL (7.4-10.4); Platelet Count 1238 10x3/uL (130-400); RBC Distribution Width 13.9 % (11.5-14.5); Red Blood Cell (RBC) Count 3.52 mill/uL (4.70-6.10); White Blood Cell (WBC) Count 9.5 10x3/uL (4.8-10.8)
[2023-04-05] MEDS: Ferrous Sulfate 325 MG TAB PO SCH ×2 (07:58→16:12)
[2023-04-05] MEDS: levETIRAcetam 500 MG (5 mL) VIAL SLOW IVP SCH ×2 (08:00→21:08)
[2023-04-05] MEDS: Enoxaparin 40 MG (0.4 mL) SYRINGE SC SCH (08:00)
[2023-04-05] MEDS ORDERED: Potassium Chloride 20 MEQ TAB PO SCH (08:00)
[2023-04-05] MEDS: QUEtiapine 25 MG TAB PER TUBE SCH ×2 (08:01→21:08)
[2023-04-05] MEDS: Amantadine HCl 100 mg Capsule PO SCH ×2 (08:01→21:08)
[2023-04-05] MEDS: Ascorbic Acid 500 mg Chewable Tablet PO SCH ×2 (08:01→21:08)
[2023-04-05] MEDS: Metoprolol Tartrate 50 MG TAB PO SCH ×2 (08:01→21:08)
[2023-04-05] MEDS: Saccharomyces boulardii 250 MG CAP PO SCH (08:01)
[2023-04-05] MEDS: Methocarbamol 500 MG TAB PER TUBE SCH ×3 (08:01→21:08)
[2023-04-05] MEDS: Lansoprazole 15 MG/5 ML (BATCHED)UDCUP PER TUBE SCH (08:01)
[2023-04-05 08:12] LABS: Mean Corpuscular Volume 93.8 fl (78.0-98.0)
[2023-04-05 08:15] LABS: Anion Gap 14 mmol/L (10-20); BUN (Urea Nitrogen) 26 mg/dL (8.9-20.6); Calc. Creatinine Clearance 104 mL/min (70-130); Calcium 9.8 mg/dL (7.8-10.44); Carbon Dioxide 24 mmol/L (22-29); Chloride 109 mmol/L (98-107); Estimated GFR 124; Glucose 97 mg/dL (70-105); Potassium 3.6 mmol/L (3.5-5.1); Sodium 143 mmol/L (136-145)
[2023-04-05] MEDS: Lacosamide 200 MG in Sodium Chloride 0.9% 50 ML IVPB SCH ×2 (10:23→21:39)
[2023-04-05] MEDS: fentaNYL 50 mcg/hour Patch TD SCH (16:12)
[2023-04-05] MEDS: Dexmedetomidine 1,000 MCG, Admixture Fee 1 EACH in Sodium Chloride 0.9% 250 ML 240 ML IVPB SCH (18:42)
[2023-04-06 07:10] LABS: #Eosinphils 0.1 thou/uL (0.0-0.7); #Monocytes 0.4 thou/uL (0.11-0.59); %Basophils 0.5 % (0.0-1.0); %Eosinophils 2.2 % (0.0-10.0); %Lymphocytes 24.1 % (21.0-51.0); %Monocytes 6.8 % (0.0-10.0); %Neutrophils 66.1 % (42.0-75.0); Hematocrit 33.9 % (42.0-52.0); Hemoglobin 10.4 g/dL (14.0-18.0); Mean Corpuscular HGB CONC 30.7 g/dL (32.0-36.0); Mean Corpuscular Hemoglobin 29.5 pg (27.0-31.0); Mean Corpuscular Volume 96.3 fl (78.0-98.0); Mean Platelet Volume 9.2 fL (7.4-10.4); Platelet Count 904 10x3/uL (130-400); RBC Distribution Width 13.6 % (11.5-14.5); Red Blood Cell (RBC) Count 3.52 mill/uL (4.70-6.10)
[2023-04-06 07:37] LABS: Anion Gap 12 mmol/L (10-20); BUN (Urea Nitrogen) 37 mg/dL (8.9-20.6); Calc. Creatinine Clearance 106 mL/min (70-130); Calcium 9.1 mg/dL (7.8-10.44); Carbon Dioxide 26 mmol/L (22-29); Chloride 111 mmol/L (98-107); Estimated GFR 125; Glucose 108 mg/dL (70-105); Potassium 4.5 mmol/L (3.5-5.1); Sodium 144 mmol/L (136-145)
[2023-04-06] MEDS: Ferrous Sulfate 325 MG TAB PO SCH ×2 (08:37→16:14)
[2023-04-06] MEDS: Ascorbic Acid 500 mg Chewable Tablet PO SCH ×2 (08:37→20:48)
[2023-04-06] MEDS: Saccharomyces boulardii 250 MG CAP PO SCH (08:37)
[2023-04-06] MEDS: levETIRAcetam 500 MG (5 mL) VIAL SLOW IVP SCH ×2 (08:38→20:47)
[2023-04-06] MEDS: Amantadine HCl 100 mg Capsule PO SCH ×2 (08:38→20:47)
[2023-04-06] MEDS: QUEtiapine 25 MG TAB PER TUBE SCH ×2 (08:38→20:47)
[2023-04-06] MEDS: Methocarbamol 500 MG TAB PER TUBE SCH ×3 (08:38→20:47)
[2023-04-06] MEDS: Enoxaparin 30 MG (0.3 mL) SYRINGE SC SCH (08:39)
[2023-04-06] MEDS: Lansoprazole 15 MG/5 ML (BATCHED)UDCUP PER TUBE SCH (08:39)
[2023-04-06] MEDS: Metoprolol Tartrate 50 MG TAB PO SCH ×2 (09:55→20:49)
[2023-04-06] MEDS: Lacosamide 200 MG in Sodium Chloride 0.9% 50 ML IVPB SCH ×2 (09:55→20:48)
[2023-04-06] MEDS: Scopolamine 1 mg/72 hour Patch TD SCH (14:54)
[2023-04-07 07:05] LABS: #Basophils 0.1 thou/uL (0.0-0.2); #Eosinphils 0.3 thou/uL (0.0-0.7); #Monocytes 0.5 thou/uL (0.11-0.59); #Neutrophils 3.3 thou/uL (1.40-6.50); %Basophils 0.9 % (0.0-1.0); %Eosinophils 4.6 % (0.0-10.0); %Monocytes 9.2 % (0.0-10.0); %Neutrophils 58.1 % (42.0-75.0); Hematocrit 31.1 % (42.0-52.0); Hemoglobin 9.9 g/dL (14.0-18.0); Mean Corpuscular HGB CONC 31.8 g/dL (32.0-36.0); Mean Corpuscular Volume 94.2 fl (78.0-98.0); RBC Distribution Width 13.6 % (11.5-14.5); White Blood Cell (WBC) Count 5.7 10x3/uL (4.8-10.8)
[2023-04-07 07:17] LABS: Platelet Count 775 10x3/uL (130-400)
[2023-04-07 07:27] LABS: Anion Gap 12 mmol/L (10-20); BUN (Urea Nitrogen) 31 mg/dL (8.9-20.6); Calc. Creatinine Clearance 107 mL/min (70-130); Calcium 9.1 mg/dL (7.8-10.44); Carbon Dioxide 25 mmol/L (22-29); Chloride 111 mmol/L (98-107); Estimated GFR 126; Glucose 122 mg/dL (70-105); Potassium 3.9 mmol/L (3.5-5.1); Sodium 144 mmol/L (136-145)
[2023-04-07] MEDS: Ferrous Sulfate 325 MG TAB PO SCH ×2 (09:42→17:00)
[2023-04-07] MEDS: QUEtiapine 25 MG TAB PER TUBE SCH ×2 (09:42→20:28)
[2023-04-07] MEDS: Saccharomyces boulardii 250 MG CAP PO SCH (09:42)
[2023-04-07] MEDS: Methocarbamol 500 MG TAB PER TUBE SCH ×3 (09:42→20:28)
[2023-04-07] MEDS: Amantadine HCl 100 mg Capsule PO SCH ×2 (09:42→20:28)
[2023-04-07] MEDS: Ascorbic Acid 500 mg Chewable Tablet PO SCH ×2 (09:42→20:28)
[2023-04-07] MEDS: Enoxaparin 30 MG (0.3 mL) SYRINGE SC SCH (09:42)
[2023-04-07] MEDS: levETIRAcetam 500 MG (5 mL) VIAL SLOW IVP SCH ×2 (09:43→20:29)
[2023-04-07] MEDS: Lansoprazole 15 MG/5 ML (BATCHED)UDCUP PER TUBE SCH (09:43)
[2023-04-07] MEDS: Metoprolol Tartrate 50 MG TAB PO SCH ×2 (09:46→20:29)
[2023-04-07] MEDS: Lacosamide 200 MG in Sodium Chloride 0.9% 50 ML IVPB SCH ×2 (10:04→20:28)
[2023-04-07] MEDS: Dexmedetomidine 1,000 MCG, Admixture Fee 1 EACH in Sodium Chloride 0.9% 250 ML 240 ML IVPB SCH (12:29)
[2023-04-07] MEDS: ALPRAZolam 0.25 MG TAB PO PRN ×2 (14:17→21:55)
[2023-04-08 06:39] LABS: #Eosinphils 0.2 thou/uL (0.0-0.7); #Monocytes 0.4 thou/uL (0.11-0.59); #Neutrophils 3.6 thou/uL (1.40-6.50); %Basophils 0.5 % (0.0-1.0); %Eosinophils 3.8 % (0.0-10.0); %Lymphocytes 24.3 % (21.0-51.0); Hematocrit 31.9 % (42.0-52.0); Hemoglobin 10.3 g/dL (14.0-18.0); Mean Corpuscular HGB CONC 32.3 g/dL (32.0-36.0); Mean Corpuscular Hemoglobin 30.1 pg (27.0-31.0); Mean Corpuscular Volume 93.3 fl (78.0-98.0); Mean Platelet Volume 9.4 fL (7.4-10.4); RBC Distribution Width 13.2 % (11.5-14.5); Red Blood Cell (RBC) Count 3.42 mill/uL (4.70-6.10); White Blood Cell (WBC) Count 5.6 10x3/uL (4.8-10.8)
[2023-04-08 06:48] LABS: Platelet Count 627 10x3/uL (130-400)
[2023-04-08 07:00] LABS: Anion Gap 13 mmol/L (10-20); BUN (Urea Nitrogen) 29 mg/dL (8.9-20.6); Calc. Creatinine Clearance 109 mL/min (70-130); Carbon Dioxide 25 mmol/L (22-29); Chloride 109 mmol/L (98-107); Estimated GFR 126; Glucose 103 mg/dL (70-105); Potassium 4.5 mmol/L (3.5-5.1); Sodium 142 mmol/L (136-145)
[2023-04-08] MEDS: Amantadine HCl 100 mg Capsule PO SCH ×2 (08:10→20:20)
[2023-04-08] MEDS: Enoxaparin 30 MG (0.3 mL) SYRINGE SC SCH (08:10)
[2023-04-08] MEDS: Ferrous Sulfate 325 MG TAB PO SCH ×2 (08:10→17:23)
[2023-04-08] MEDS: QUEtiapine 25 MG TAB PER TUBE SCH ×2 (08:10→20:20)
[2023-04-08] MEDS: Saccharomyces boulardii 250 MG CAP PO SCH (08:10)
[2023-04-08] MEDS: Ascorbic Acid 500 mg Chewable Tablet PO SCH ×2 (08:10→20:20)
[2023-04-08] MEDS: Methocarbamol 500 MG TAB PER TUBE SCH ×3 (08:10→20:20)
[2023-04-08] MEDS: Lansoprazole 15 MG/5 ML (BATCHED)UDCUP PER TUBE SCH (08:11)
[2023-04-08] MEDS: levETIRAcetam 500 MG (5 mL) VIAL SLOW IVP SCH (08:11)
[2023-04-08] MEDS: ALPRAZolam 0.25 MG TAB PO PRN ×2 (08:13→15:37)
[2023-04-08] MEDS: Senokot 8.6 MG TAB PO PRN (08:18)
[2023-04-08] MEDS: Metoprolol Tartrate 50 MG TAB PO SCH ×2 (08:18→20:21)
[2023-04-08] MEDS: Lacosamide 200 MG in Sodium Chloride 0.9% 50 ML IVPB SCH ×2 (09:10→21:40)
[2023-04-08] MEDS: Dexmedetomidine 1,000 MCG, Admixture Fee 1 EACH in Sodium Chloride 0.9% 250 ML 240 ML IVPB SCH (12:15)
[2023-04-08] MEDS: fentaNYL 50 mcg/hour Patch TD SCH (15:37)
[2023-04-08] MEDS: levETIRAcetam 500 mg/5 ml Oral Solution PER TUBE SCH (20:20)
[2023-04-09 06:23] LABS: Anion Gap 13 mmol/L (10-20); BUN (Urea Nitrogen) 25 mg/dL (8.9-20.6); Calc. Creatinine Clearance 104 mL/min (70-130); Calcium 8.9 mg/dL (7.8-10.44); Carbon Dioxide 23 mmol/L (22-29); Chloride 109 mmol/L (98-107); Estimated GFR 124; Glucose 93 mg/dL (70-105); Potassium 3.8 mmol/L (3.5-5.1); Sodium 141 mmol/L (136-145)
[2023-04-09 06:35] LABS: Hematocrit 32.2 % (42.0-52.0); Hemoglobin 10.3 g/dL (14.0-18.0); Mean Corpuscular Hemoglobin 29.6 pg (27.0-31.0); Mean Corpuscular Volume 92.5 fl (78.0-98.0); Red Blood Cell (RBC) Count 3.48 mill/uL (4.70-6.10); White Blood Cell (WBC) Count 7.3 10x3/uL (4.8-10.8)
[2023-04-09 06:36] LABS: #Eosinphils 0.3 thou/uL (0.0-0.7); #Monocytes 0.5 thou/uL (0.11-0.59); #Neutrophils 4.8 thou/uL (1.40-6.50); %Basophils 0.5 % (0.0-1.0); %Eosinophils 3.4 % (0.0-10.0); %Lymphocytes 23.3 % (21.0-51.0); %Monocytes 7.1 % (0.0-10.0); %Neutrophils 65.4 % (42.0-75.0); Mean Platelet Volume 9.9 fL (7.4-10.4); Platelet Count 589 10x3/uL (130-400); RBC Distribution Width 13.2 % (11.5-14.5)
[2023-04-09] MEDS: Lansoprazole 15 MG/5 ML (BATCHED)UDCUP PER TUBE SCH (08:50)
[2023-04-09] MEDS: levETIRAcetam 500 mg/5 ml Oral Solution PER TUBE SCH ×2 (08:50→20:19)
[2023-04-09] MEDS: Enoxaparin 30 MG (0.3 mL) SYRINGE SC SCH (08:50)
[2023-04-09] MEDS: Methocarbamol 500 MG TAB PER TUBE SCH ×3 (08:51→20:20)
[2023-04-09] MEDS: QUEtiapine 25 MG TAB PER TUBE SCH ×2 (08:51→20:20)
[2023-04-09] MEDS: Saccharomyces boulardii 250 MG CAP PO SCH (08:51)
[2023-04-09] MEDS: Ferrous Sulfate 325 MG TAB PO SCH ×2 (08:51→16:58)
[2023-04-09] MEDS: Metoprolol Tartrate 50 MG TAB PO SCH ×2 (08:51→20:20)
[2023-04-09] MEDS: Ascorbic Acid 500 mg Chewable Tablet PO SCH ×2 (08:51→20:20)
[2023-04-09] MEDS: Amantadine HCl 100 mg Capsule PO SCH ×2 (08:51→20:20)
[2023-04-09] MEDS: Lacosamide 200 MG in Sodium Chloride 0.9% 50 ML IVPB SCH ×2 (09:50→21:05)
[2023-04-09] MEDS: Scopolamine 1 mg/72 hour Patch TD SCH (14:47)
[2023-04-09] MEDS: ALPRAZolam 0.25 MG TAB PO PRN (17:21)
[2023-04-09] MEDS: Dexmedetomidine 1,000 MCG, Admixture Fee 1 EACH in Sodium Chloride 0.9% 250 ML 240 ML IVPB SCH (21:36)
[2023-04-10 08:14] LABS: #Eosinphils 0.2 thou/uL (0.0-0.7); #Monocytes 0.5 thou/uL (0.11-0.59); #Neutrophils 4.3 thou/uL (1.40-6.50); %Basophils 0.5 % (0.0-1.0); %Eosinophils 3.1 % (0.0-10.0); %Lymphocytes 22.3 % (21.0-51.0); %Monocytes 7.1 % (0.0-10.0); %Neutrophils 66.7 % (42.0-75.0); Hematocrit 33.2 % (42.0-52.0); Hemoglobin 10.7 g/dL (14.0-18.0); Mean Corpuscular HGB CONC 32.2 g/dL (32.0-36.0); Mean Corpuscular Hemoglobin 30.2 pg (27.0-31.0); Mean Corpuscular Volume 93.8 fl (78.0-98.0); Mean Platelet Volume 9.5 fL (7.4-10.4); Platelet Count 547 10x3/uL (130-400); RBC Distribution Width 13.2 % (11.5-14.5); Red Blood Cell (RBC) Count 3.54 mill/uL (4.70-6.10); White Blood Cell (WBC) Count 6.5 10x3/uL (4.8-10.8)
[2023-04-10 08:30] LABS: Anion Gap 12 mmol/L (10-20); BUN (Urea Nitrogen) 24 mg/dL (8.9-20.6); Calc. Creatinine Clearance 107 mL/min (70-130); Calcium 9.3 mg/dL (7.8-10.44); Carbon Dioxide 24 mmol/L (22-29); Chloride 109 mmol/L (98-107); Estimated GFR 125; Glucose 84 mg/dL (70-105); Potassium 4.3 mmol/L (3.5-5.1); Sodium 141 mmol/L (136-145)
[2023-04-10] MEDS: Saccharomyces boulardii 250 MG CAP PO SCH (11:09)
[2023-04-10] MEDS: Ferrous Sulfate 325 MG TAB PO SCH ×2 (11:09→16:07)
[2023-04-10] MEDS: Ascorbic Acid 500 mg Chewable Tablet PO SCH ×2 (11:09→21:01)
[2023-04-10] MEDS: QUEtiapine 25 MG TAB PER TUBE SCH ×2 (11:09→21:01)
[2023-04-10] MEDS: Senokot 8.6 MG TAB PO PRN (11:09)
[2023-04-10] MEDS: Amantadine HCl 100 mg Capsule PO SCH (11:10)
[2023-04-10] MEDS: Metoprolol Tartrate 50 MG TAB PO SCH ×2 (11:10→21:00)
[2023-04-10] MEDS: Methocarbamol 500 MG TAB PER TUBE SCH ×3 (11:10→21:01)
[2023-04-10] MEDS: Lacosamide 200 MG in Sodium Chloride 0.9% 50 ML IVPB SCH ×2 (11:10→21:42)
[2023-04-10] MEDS: levETIRAcetam 500 mg/5 ml Oral Solution PER TUBE SCH ×2 (11:10→21:00)
[2023-04-10] MEDS: Enoxaparin 30 MG (0.3 mL) SYRINGE SC SCH (11:10)
[2023-04-10] MEDS: Lansoprazole 15 MG/5 ML (BATCHED)UDCUP PER TUBE SCH (11:12)
[2023-04-10] MEDS: ALPRAZolam 0.25 MG TAB PO PRN (23:09)
[2023-04-11] MEDS: QUEtiapine 25 MG TAB PER TUBE SCH ×2 (09:13→20:19)
[2023-04-11] MEDS: Ferrous Sulfate 325 MG TAB PO SCH ×2 (09:13→16:05)
[2023-04-11] MEDS: Saccharomyces boulardii 250 MG CAP PO SCH (09:13)
[2023-04-11] MEDS: Lansoprazole 15 MG/5 ML (BATCHED)UDCUP PER TUBE SCH (09:13)
[2023-04-11] MEDS: Ascorbic Acid 500 mg Chewable Tablet PO SCH ×2 (09:13→20:20)
[2023-04-11] MEDS: levETIRAcetam 500 mg/5 ml Oral Solution PER TUBE SCH ×2 (09:13→20:19)
[2023-04-11] MEDS: Methocarbamol 500 MG TAB PER TUBE SCH ×3 (09:13→20:20)
[2023-04-11] MEDS: Dexmedetomidine 1,000 MCG, Admixture Fee 1 EACH in Sodium Chloride 0.9% 250 ML 240 ML IVPB SCH (09:14)
[2023-04-11] MEDS: Metoprolol Tartrate 50 MG TAB PO SCH ×3 (09:14→20:21)
[2023-04-11] MEDS: Enoxaparin 30 MG (0.3 mL) SYRINGE SC SCH (09:14)
[2023-04-11] MEDS: Senokot 8.6 MG TAB PO PRN (09:21)
[2023-04-11] MEDS: Lacosamide 200 MG in Sodium Chloride 0.9% 50 ML IVPB SCH ×2 (09:40→23:28)
[2023-04-11] MEDS ORDERED: clonazePAM 0.5 MG TAB PO SCH ×2 (12:15→16:00)
[2023-04-11] MEDS: fentaNYL 50 mcg/hour Patch TD SCH (16:05)
[2023-04-11] MEDS: clonazePAM 0.5 MG TAB PO SCH (20:20)
[2023-04-12] MEDS: clonazePAM 0.5 MG TAB PO SCH ×2 (08:10→20:56)
[2023-04-12] MEDS: QUEtiapine 25 MG TAB PER TUBE SCH ×2 (08:10→20:56)
[2023-04-12] MEDS: Methocarbamol 500 MG TAB PER TUBE SCH ×3 (08:10→21:01)
[2023-04-12] MEDS: levETIRAcetam 500 mg/5 ml Oral Solution PER TUBE SCH ×2 (08:10→20:56)
[2023-04-12] MEDS: Ascorbic Acid 500 mg Chewable Tablet PO SCH ×2 (08:10→20:55)
[2023-04-12] MEDS: Ferrous Sulfate 325 MG TAB PO SCH ×2 (08:10→17:12)
[2023-04-12] MEDS: Lansoprazole 15 MG/5 ML (BATCHED)UDCUP PER TUBE SCH (08:10)
[2023-04-12] MEDS: Metoprolol Tartrate 50 MG TAB PO SCH ×3 (08:11→20:56)
[2023-04-12] MEDS: Enoxaparin 30 MG (0.3 mL) SYRINGE SC SCH (08:11)
[2023-04-12] MEDS: Saccharomyces boulardii 250 MG CAP PO SCH (08:11)
[2023-04-12] MEDS: Lacosamide 200 MG in Sodium Chloride 0.9% 50 ML IVPB SCH ×2 (08:28→20:57)
[2023-04-13] MEDS: ALPRAZolam 0.25 MG TAB PO PRN ×2 (00:05→07:54)
[2023-04-13 05:13] LABS: #Eosinphils 0.2 thou/uL (0.0-0.7); #Monocytes 0.9 thou/uL (0.11-0.59); #Neutrophils 9.3 thou/uL (1.40-6.50); %Basophils 0.3 % (0.0-1.0); %Eosinophils 1.4 % (0.0-10.0); %Lymphocytes 12.3 % (21.0-51.0); %Monocytes 7.3 % (0.0-10.0); %Neutrophils 78.4 % (42.0-75.0); Hematocrit 34.6 % (42.0-52.0); Hemoglobin 11.1 g/dL (14.0-18.0); Mean Corpuscular HGB CONC 32.1 g/dL (32.0-36.0); Mean Corpuscular Hemoglobin 29.8 pg (27.0-31.0); Mean Corpuscular Volume 92.8 fl (78.0-98.0); Mean Platelet Volume 10.4 fL (7.4-10.4); Platelet Count 378 10x3/uL (130-400); RBC Distribution Width 13.1 % (11.5-14.5); Red Blood Cell (RBC) Count 3.73 mill/uL (4.70-6.10); White Blood Cell (WBC) Count 11.8 10x3/uL (4.8-10.8)
[2023-04-13 05:29] VITALS: BMI 16.7
[2023-04-13 05:34] LABS: Anion Gap 12 mmol/L (10-20); BUN (Urea Nitrogen) 13 mg/dL (8.9-20.6); Calc. Creatinine Clearance 113 mL/min (70-130); Calcium 9.1 mg/dL (7.8-10.44); Carbon Dioxide 24 mmol/L (22-29); Chloride 107 mmol/L (98-107); Estimated GFR 128; Glucose 105 mg/dL (70-105); Sodium 139 mmol/L (136-145)
[2023-04-13] MEDS: levETIRAcetam 500 mg/5 ml Oral Solution PER TUBE SCH ×2 (07:54→20:02)
[2023-04-13] MEDS: QUEtiapine 25 MG TAB PER TUBE SCH (07:54)
[2023-04-13] MEDS: Ferrous Sulfate 325 MG TAB PO SCH ×2 (07:54→16:31)
[2023-04-13] MEDS: clonazePAM 0.5 MG TAB PO SCH ×2 (07:54→20:03)
[2023-04-13] MEDS: Ascorbic Acid 500 mg Chewable Tablet PO SCH ×2 (07:54→20:03)
[2023-04-13] MEDS: Saccharomyces boulardii 250 MG CAP PO SCH (07:54)
[2023-04-13] MEDS: Enoxaparin 30 MG (0.3 mL) SYRINGE SC SCH (07:54)
[2023-04-13] MEDS: Lansoprazole 15 MG/5 ML (BATCHED)UDCUP PER TUBE SCH (07:56)
[2023-04-13] MEDS: Metoprolol Tartrate 50 MG TAB PO SCH ×2 (07:56→20:03)
[2023-04-13] MEDS: Methocarbamol 500 MG TAB PER TUBE SCH ×3 (07:59→20:03)
[2023-04-13] MEDS: Lacosamide 200 MG in Sodium Chloride 0.9% 50 ML IVPB SCH ×2 (09:47→20:56)
[2023-04-13] MEDS ORDERED: clonazePAM 0.5 MG TAB PO PRN (14:44)
[2023-04-13] MEDS: QUEtiapine 100 MG TAB PER TUBE SCH (20:03)
[2023-04-14] MEDS: Enoxaparin 30 MG (0.3 mL) SYRINGE SC SCH (08:09)
[2023-04-14] MEDS: levETIRAcetam 500 mg/5 ml Oral Solution PER TUBE SCH ×2 (08:09→20:20)
[2023-04-14] MEDS: QUEtiapine 25 MG TAB PER TUBE SCH (08:09)
[2023-04-14] MEDS: Lansoprazole 15 MG/5 ML (BATCHED)UDCUP PER TUBE SCH (08:09)
[2023-04-14] MEDS: Ascorbic Acid 500 mg Chewable Tablet PO SCH ×2 (08:10→20:21)
[2023-04-14] MEDS: Methocarbamol 500 MG TAB PER TUBE SCH ×3 (08:10→20:20)
[2023-04-14] MEDS: clonazePAM 0.5 MG TAB PO SCH ×2 (08:10→20:20)
[2023-04-14] MEDS: Ferrous Sulfate 325 MG TAB PO SCH ×2 (08:10→15:44)
[2023-04-14] MEDS: Metoprolol Tartrate 50 MG TAB PO SCH ×2 (08:10→20:21)
[2023-04-14] MEDS: Saccharomyces boulardii 250 MG CAP PO SCH (08:10)
[2023-04-14] MEDS: Lacosamide 200 MG in Sodium Chloride 0.9% 50 ML IVPB SCH ×2 (09:05→21:59)
[2023-04-14] MEDS ORDERED: Lidocaine 1% (PF) 30 ML VIAL ONE (09:38)
[2023-04-14] MEDS ORDERED: fentaNYL 50 mcg/mL 1 mL Vial ONE (15:04)
[2023-04-14] MEDS: fentaNYL 50 mcg/hour Patch TD SCH (15:44)
[2023-04-14] MEDS ORDERED: Lidocaine 1% (PF) 30 ML VIAL FS SCH (16:00)
[2023-04-14] MEDS ORDERED: fentaNYL 50 mcg/mL 1 mL Vial SLOW IVP SCH (16:00)
[2023-04-14] MEDS: QUEtiapine 100 MG TAB PER TUBE SCH (20:21)
[2023-04-15] MEDS: Metoprolol Tartrate 50 MG TAB PO SCH ×2 (09:55→21:36)
[2023-04-15] MEDS: levETIRAcetam 500 mg/5 ml Oral Solution PER TUBE SCH ×2 (09:55→21:34)
[2023-04-15] MEDS: QUEtiapine 25 MG TAB PER TUBE SCH (09:55)
[2023-04-15] MEDS: Lansoprazole 15 MG/5 ML (BATCHED)UDCUP PER TUBE SCH (09:55)
[2023-04-15] MEDS: Ascorbic Acid 500 mg Chewable Tablet PO SCH ×2 (09:55→21:36)
[2023-04-15] MEDS: Saccharomyces boulardii 250 MG CAP PO SCH (09:55)
[2023-04-15] MEDS: Ferrous Sulfate 325 MG TAB PO SCH ×2 (09:55→16:37)
[2023-04-15] MEDS: Enoxaparin 30 MG (0.3 mL) SYRINGE SC SCH (09:56)
[2023-04-15] MEDS: Methocarbamol 500 MG TAB PER TUBE SCH ×3 (09:56→21:35)
[2023-04-15] MEDS: clonazePAM 0.5 MG TAB PO SCH ×2 (09:56→21:37)
[2023-04-15] MEDS: Lacosamide 200 MG in Sodium Chloride 0.9% 50 ML IVPB SCH ×2 (12:50→21:37)
[2023-04-15 15:06] VITALS: BP 113/62
[2023-04-15] MEDS: QUEtiapine 100 MG TAB PER TUBE SCH (21:35)
[2023-04-15] MEDS: Senokot 8.6 MG TAB PO PRN (21:38)
[2023-04-16 04:17] LABS: #Eosinphils 0.2 thou/uL (0.0-0.7); #Monocytes 0.5 thou/uL (0.11-0.59); #Neutrophils 3.9 thou/uL (1.40-6.50); %Basophils 0.5 % (0.0-1.0); %Eosinophils 3.2 % (0.0-10.0); %Lymphocytes 21.6 % (21.0-51.0); %Neutrophils 66.5 % (42.0-75.0); Hematocrit 35.9 % (42.0-52.0); Hemoglobin 11.7 g/dL (14.0-18.0); Mean Corpuscular HGB CONC 32.6 g/dL (32.0-36.0); Mean Corpuscular Hemoglobin 29.7 pg (27.0-31.0); Mean Corpuscular Volume 91.1 fl (78.0-98.0); Mean Platelet Volume 10.9 fL (7.4-10.4); Platelet Count 273 10x3/uL (130-400); RBC Distribution Width 12.8 % (11.5-14.5); Red Blood Cell (RBC) Count 3.94 mill/uL (4.70-6.10); White Blood Cell (WBC) Count 5.9 10x3/uL (4.8-10.8)
[2023-04-16 05:13] LABS: Anion Gap 13 mmol/L (10-20); BUN (Urea Nitrogen) 19 mg/dL (8.9-20.6); Calc. Creatinine Clearance 111 mL/min (70-130); Calcium 9.3 mg/dL (7.8-10.44); Carbon Dioxide 26 mmol/L (22-29); Chloride 106 mmol/L (98-107); Estimated GFR 128; Glucose 125 mg/dL (70-105); Magnesium 2.1 mg/dL (1.6-2.6); Phosphorus 4.4 mg/dL (2.3-4.7); Potassium 3.8 mmol/L (3.5-5.1); Sodium 141 mmol/L (136-145)
[2023-04-16 07:59] VITALS: TEMP 98.9
[2023-04-16] MEDS: levETIRAcetam 500 mg/5 ml Oral Solution PER TUBE SCH (08:46)
[2023-04-16] MEDS: Metoprolol Tartrate 50 MG TAB PO SCH (08:47)
[2023-04-16] MEDS: QUEtiapine 25 MG TAB PER TUBE SCH (08:47)
[2023-04-16] MEDS: Ferrous Sulfate 325 MG TAB PO SCH (08:47)
[2023-04-16] MEDS: Methocarbamol 500 MG TAB PER TUBE SCH (08:47)
[2023-04-16] MEDS: Saccharomyces boulardii 250 MG CAP PO SCH (08:47)
[2023-04-16] MEDS: Lansoprazole 15 MG/5 ML (BATCHED)UDCUP PER TUBE SCH (08:47)
[2023-04-16] MEDS: Ascorbic Acid 500 mg Chewable Tablet PO SCH (08:47)
[2023-04-16] MEDS: clonazePAM 0.5 MG TAB PO SCH (08:47)
[2023-04-16] MEDS: Enoxaparin 30 MG (0.3 mL) SYRINGE SC SCH (08:48)
== END 2023-04-16 09:22 | disposition short-term general hospital (02) | DRG 4 ==
LOC: ERS 15:05 → CCU 16:15 → IMCU/EMU 04-07 02:29
PROVIDERS: ADMIT Specialist; ATTEND Specialist
PROC: 0D9670Z Drainage of Stomach with Drainage Device, Via Natural or Artificial Opening (ICD-10-PCS; 2023-03-14)
PROC: 3E0G76Z Introduction of Nutritional Substance into Upper GI, Via Natural or Artificial Opening (ICD-10-PCS; 2023-03-14)
PROC: 0BH17EZ Insertion of Endotracheal Airway into Trachea, Via Natural or Artificial Opening (ICD-10-PCS; 2023-03-14)
PROC: 5A1955Z Respiratory Ventilation, Greater than 96 Consecutive Hours (ICD-10-PCS; 2023-03-14)
PROC: 0HQ0XZZ Repair Scalp Skin, External Approach (ICD-10-PCS; 2023-03-14)
PROC: 3E033XZ Introduction of Vasopressor into Peripheral Vein, Percutaneous Approach (ICD-10-PCS; 2023-03-17)
PROC: 3E033XZ Introduction of Vasopressor into Peripheral Vein, Percutaneous Approach (ICD-10-PCS; 2023-03-17)
PROC: 4A00X4Z Measurement of Central Nervous Electrical Activity, External Approach (ICD-10-PCS; 2023-03-18)
PROC: 4A00X4Z Measurement of Central Nervous Electrical Activity, External Approach (ICD-10-PCS; 2023-03-19)
PROC: 0B9F8ZZ Drainage of Right Lower Lung Lobe, Via Natural or Artificial Opening Endoscopic (ICD-10-PCS; 2023-03-19)
PROC: 0B948ZZ Drainage of Right Upper Lobe Bronchus, Via Natural or Artificial Opening Endoscopic (ICD-10-PCS; 2023-03-19)
PROC: 0B958ZZ Drainage of Right Middle Lobe Bronchus, Via Natural or Artificial Opening Endoscopic (ICD-10-PCS; 2023-03-19)
PROC: 0BC68ZZ Extirpation of Matter from Right Lower Lobe Bronchus, Via Natural or Artificial Opening Endoscopic (ICD-10-PCS; 2023-03-21)
PROC: 4A133R1 Monitoring of Arterial Saturation, Peripheral, Percutaneous Approach (ICD-10-PCS; 2023-03-21)
PROC: 0B110F4 Bypass Trachea to Cutaneous with Tracheostomy Device, Open Approach (ICD-10-PCS; principal; 2023-03-22)
PROC: 0DH68UZ Insertion of Feeding Device into Stomach, Via Natural or Artificial Opening Endoscopic (ICD-10-PCS; 2023-03-22)
PROC: 3E0G76Z Introduction of Nutritional Substance into Upper GI, Via Natural or Artificial Opening (ICD-10-PCS; 2023-03-22)
PROC: 0B978ZZ Drainage of Left Main Bronchus, Via Natural or Artificial Opening Endoscopic (ICD-10-PCS; 2023-03-28)
PROC: 0B938ZZ Drainage of Right Main Bronchus, Via Natural or Artificial Opening Endoscopic (ICD-10-PCS; 2023-03-28)
DX: S06.6XAA Traumatic subarachnoid hemorrhage with loss of consciousness status unknown, initial encounter (principal); J15.69 Pneumonia due to other Gram-negative bacteria; J69.0 Pneumonitis due to inhalation of food and vomit; J96.01 Acute respiratory failure with hypoxia; E87.20 Acidosis, unspecified; J98.11 Atelectasis; S06.34AA Traumatic hemorrhage of right cerebrum with loss of consciousness status unknown, initial encounter; S06.2XAA Diffuse traumatic brain injury with loss of consciousness status unknown, initial encounter; G93.89 Other specified disorders of brain; S06.5XAA Traumatic subdural hemorrhage with loss of consciousness status unknown, initial encounter; S02.119A Unspecified fracture of occiput, initial encounter for closed fracture; J43.9 Emphysema, unspecified; S01.01XA Laceration without foreign body of scalp, initial encounter; R56.9 Unspecified convulsions; V69.9XXA Occupant (driver) (passenger) of heavy transport vehicle injured in unspecified traffic accident, initial encounter; Y92.415 Exit ramp or entrance ramp of street or highway as the place of occurrence of the external cause; R40.2431 Glasgow coma scale score 3-8, in the field [EMT or ambulance]; D64.9 Anemia, unspecified; D75.839 Thrombocytosis, unspecified
CPT/HCPCS: 31624; 36415; 36416; 36600; 51702; 70450; 71045; 71260; 72125; 74177; 80048; 80053; 80307; 81001; 81002; 82805; 83605; 83735; 83930; 83935; 84100; 84300; 85025; 85060; 85610; 85730; 86850; 86900; 86901; 87040; 87070; 87077; 87186; 87205; 89051; 90471; 90715; 93005; 93010; 93970; 94002; 94003; 94640; 95711; 95819; 96365; 96366; 96368; 96375; 96376; 97139; 99292; C9113; C9254; G0390; J0171; J0360; J0690; J0692; J1650; J1885; J1953; J2001; J2060; J2150; J2250; J2272; J2405; J2597; J2704; J3010; J3475; J3480; J3490; J7030; J7050; J7070; J7120; J7799; Q9967